=== PATIENT | female | born 1985 | race Two or more races ===

== ENCOUNTER 2017-02-21 09:07 | Day surgery (SDC) | payer OTHER ==
[2017-02-21] MEDS ORDERED: MIDAZOLAM 2 MG/2 ML VIAL IVP ONE (09:13)
--- NOTE | 2017-02-21 09:13 | PDGENHP ---
History and Physical - Chief Complaint Right Hip Pain - History of Present Illness 1. Bilateral~Femoroacetabular impingement (RAJAN) Cam type, with~resultant labral tear; RIGHT>>LEFT 2. Bilateral~Hip Dyplasia (anterior under coverage) HISTORY OF PRESENT ILLNESS: Keeshais a 31 y.o.~active female~who I have had the pleasure to consult on today. I have enjoyed meeting her. She~lives in [facility]. ~Keeshaworks as an [employer]. ~She~is ; she~has one~child. ~Keeshaenjoys riding horses and volleyball. Heidi's bilateral~hip pain (R>L)~started two years~ago, with no~recalled trauma or injury, and with no~previous complaints. Keeshadoes not have~a known history of hip dysplasia. Presentation today is of anterior, posterior bilateral~hip pain. ~The hip does~ wake her~at night and does~click and catch on her. Sitting can be a real struggle~for her. Keeshadoes~report suffering from lower back pain episodes. ~ Keeshahas~utilized medication for pain management, including NSAID. Keeshahas used medication since the pain began. Keeshaunderstands that she~has a hip and pelvis problem which should be researched and wishes to get a better understanding of her~hip status, followed by an establishment of a treatment strategy, hoping sheArmenwould be able to get back to her~well being active life. History: Past medical history: ~ None which is relevant Relevant familial history: None which is relevant Past surgical history: No. Surgery Anesthesia 1 Wrist cyst excision General Keeshadenies problematic issues with general anesthesia in the past. I have reviewed, verified and agree with the past medical, surgical, family and social history. Current Medications:Armenhas a current medication list which includes the following prescription(s): ibuprofen and levonor/eth estrad-eth estrad. ALLERGIES:~is allergic to codeine and levaquin [levofloxacin]. Objective: Physical Examination: Keeshais 5~feet 11~inches tall and weighs 145~Lbs. Keeshais AAO x3; she~is well- nourished, in NAD. Skin is warm and dry. ~Breathing is non-labored. ~CV with RRR by pulse. Abdomen is soft, NTND. Currently, she~walks with a normal~gait. Trendelenburg sign is negative~and proprioception is normal, both~sides. She~presents with mild-moderate~signs of joint laxity. Beightons Score: 4 Lower spine examination is negative~for sciatic or femoral nerve irritation with negative~SLR &~femoral stretch tests. Range of motion of the spine is normal~for flexion, extension, and rotations, with~associated pain in the right lumbar area. Strength, Sensation and pulses are normal - bilaterally Ankles and knees exams are normal~and no~mal-alignment is evident. She~has no leg length discrepancy. Thigh circumference is asymmetric~with low~muscle atrophy~on left~side. Hip ROM (degrees): FL ER At 90~hip FL IR At 90~hip FL AB AD EX IR Neutral hip ER Neutral hip R (with pain) 110 60 20 45 10 15 50 45 L 115 50 25 45 5 20 55 35 Specific hip and pelvis tests: Quadrant CANDACE Roll Add. Longus R +++ +++ Negative Negative L +++ +++ Negative + Glut. Med ITB Pos. Imp R +++ 4+/5 strength Negative 4+/5 strength Negative L Negative 5/5 strength Negative 5/5 strength Negative Squeeze test measured weak. Bony Symphysis pubis is pain free~to touch while concentric activity of the rectus abdominis, does not~produce pain at its insertion. Ilio Psos specific tests are positive for pain during cycling for the right hip~ and remarkable for painful snap~on the right. HF has pain and weakness in the right hip. Anterior/Posterior~capsule tenderness on the bilateral. Greater trochanteric burse is painful~on the right hip. Positive piriformis on the right side.~FAIR is negative, with no~local signs of neuritis related to sciatic nerve. SIJs examination is produces pain on right side~with normal~CANDACE in relation and local tenderness. Hamstrings tests are negative~functional contraction and negative~tendinopathy both hips. On a daily basis, the following percentages reflect Heidi's overall total pain: Deep hip: 60% Glut med: 20% SI: 20% Imaging: Radiology studies which I have personally reviewed, analyzed and measured are below: XR: AP of the hip and pelvis: Performed in a good~technique Coccyx to pubic symphysis distance 1.3~cm. Standing [place] Lines are preserved. Minimal~Pathological signs are seen in the Symphysis Pubis. Minimal~Pathological signs are seen at the Ischial tuberosity. ~ Specific measurements show: NSA~ LCE Sourcil~Angle Sharp's angle Lat. Cam Lat. Pincer C.Over~sign Head~Coverage % ATDmm R N 31 7 40 + - - 76 N L N 27 9 40 + - - 84 N Pos. wall sign ISS NAD ~~Dysplasia Comments R Negative Negative 22.5~mm ++ L Negative Negative 20.4~mm ++ Sclerosis Sup. Lat. OA Cysts Joint Space-WBZ Joint Space-Medial R Negative Negative Negative 5.0~mm 4.5~mm L Negative Negative Negative 5.2~mm 3.2~mm Impression and plan: Keeshais a 31 y.o.~active female~suffering from symptomatic bilateral~hip pain due to Bilateral~Femoroacetabular impingement (RAJAN) Cam type, with~resultant labral tear and Bilateral~Hip Dyplasia~causing significant disability to her~ and altering her~sport and life activities. Physical examination, imaging, and her~story correspond with the diagnosis mentioned above. I explained that hip dysplasia is a condition wherein the hip joint has excessive play~and instability due to a variety of factors, including the depth and adequacy of the socket, the orientation of the femur bone, and ligament laxity around the hip joint. Dysplasia ranges in severity from borderline to zakiya, with treatment options being specific to the specific nature of the problem. Left untreated, the instability in the hip joint can cause progressive tearing of the labrum and deterioration of the surface cartilage, ultimately resulting in progressive osteoarthritis of the hip. I explained that femoroacetabular impingement (RAJAN - Cam type) arises due to a bony or soft tissue conflict between the femur (ball) and acetabulum (socket) caused by an abnormality in the shape of the femoral head and neck. Over time, repetitive impingement can result in damage to the labrum and adjacent surface cartilage within the socket, ultimately giving rise to progressive osteoarthritis of the hip. I explained that although a labral tear can be a source of pain, it is rarely the root of the problem and typically occurs secondary to an underlying abnormality in the shape and mechanics of the hip joint. I reviewed conservative treatment options for Dysplasia and RAJAN including activity modification to avoid positions of impingement or instability, physical therapy, non-steroidal anti-inflammatory medications, and various injections (corticosteroid and PRP) aimed at reducing inflammation in the hip joint or/and preventing dynamic instability and impingement. PRP injections may promote healing and reduce symptoms in certain cases but it will not repair chronically damaged tissue. Although these measures may help to buy time~and reduce current level of symptoms, they are not a definitive solution to the problem given the underlying abnormality in the shape of the hip joint. Patients who have failed conservative management and continue to experience symptoms are candidates for definitive surgical treatment, which may consist of hip arthroscopy alone or in combination with more invasive bony realignment procedures of the hip socket and/or femur called periacetabular osteotomy (NIDIA) or derotational femoral osteotomy (DFO). Hip arthroscopy typically includes treating the labrum with either repair or reconstruction of the torn labrum; as well as addressing the underlying abnormalities by restoring the normal shape to the hip joint. If the cartilage is damaged a Microfracture surgical procedure may also be necessary to help stimulate the growth of fibrocartilage. If a patient requires a labral reconstruction or a Microfracture, the initial rehabilitation from the surgery may take longer, but the medical terminologist results are typically favorable. I reviewed the technical aspects of periacetabular osteotomy (NIDIA) including risks, benefits, and expected course of recovery. Keeshaunderstands that NIDIA is an inpatient procedure carried out through two medium sized incisions on the front and back of the hip joint. The hip socket is cut, realigned, and stabilized with 2 3 internal screws. Risks include infection, bleeding, injury to nearby nerves or vessels, stiffness, persistent pain, instability, failure of bony healing, implant related complications, and venous thromboembolic disease. Rarely, revision surgery may be required to address these problems. Risks, potential complications, side effects and recovery from surgical procedure were discussed in length. We explained how this surgery is an open procedure, and though patients tend to do well in the long-term, it involves significant pain in the first 2-4 weeks post-op and a rather lengthy rehab.~Overall recovery takes approximately 6 12~months depending on the extent of damage and degree of repair. Heidi~understands that she~will undergo hip arthroscopy 1 week prior to the NIDIA to address damage inside the hip joint. Keeshaunderstands that hip arthroscopy and NIDIA are two separate procedures that are best performed one week apart, with the arthroscopy commencing first to "tighten up" any pathology evident in the hip joint (labral repair, etc.) and the NIDIA open procedure occurring 7-10 days later to realign the acetabulum. Keeshawill review the info presented. We will refer Heidi for Physical therapy. In order to obtain more detailed information regarding the alignment, orientation, and shape of the bony hip and pelvis I will order a CT scan to be performed. The results of the CT scan, including femoral torsion and acetabular version measured values and 3D images, will aid me in deciding on the best treatment strategy and surgical pre-planning. In order to better evaluate the soft tissues and cartilage of the hip joint, I will order an MRI scan. Keeshawill contact us if she~wishes to pursue further treatment in the future. ~ Keeshais happy with this plan. I have also supplied her~with handouts, outlining the expected surgical treatment and rehab involved. I wish~Keeshaall the best, ~~ Alli Lee, PAC History Information - Allergies/Home Medication List Allergies/Adverse Reactions: levofloxacin [From Levaquin] Allergy (Severe, Verified 01/14/17 11:46) Hives codeine Allergy (Intermediate, Verified 01/14/17 11:46) Hives apricots Allergy (Severe, Uncoded 01/14/17 11:46) Swelling/neck,face,throat pineapple Allergy (Severe, Uncoded 01/14/17 11:46) Swelling/neck,face,throat Home Medications: Alesse ( Control) 1 each PO DAILY 01/20/17 [Last Taken Unknown] I have personally reviewed and updated: medical history - Social History Smoking Status: Never smoked Review of Systems Review of Systems: Physical Exam Physical Exam:
[2017-02-21] MEDS ORDERED: ceFAZolin 2 GM/SWFI 2 GM/20 ML SYR IVP ONE (09:14)
[2017-02-21] MEDS ORDERED: PREGABALIN 150 MG CAP PO ONE (09:14)
[2017-02-21] MEDS ORDERED: ACETAMINOPHEN 500 MG TAB PO ONE (09:14)
[2017-02-21] MEDS ORDERED: LIDOCAINE 1% 2 ML INJ ONE (09:32)
[2017-02-21] MEDS ORDERED: LR 1,000 ML IV ONE (09:39)
[2017-02-21] MEDS ORDERED: LIDOCAINE 1% 2 ML INJ ID PRN (09:39)
[2017-02-21] MEDS ORDERED: EPINEPHrine 30 MG/30 ML MDV (0.1 MG/0.1 ML) ONE (10:31)
[2017-02-21] MEDS ORDERED: BUPIVACAINE 0.25% 30 ML SDV ONE ×2 (10:31→12:31)
[2017-02-21] MEDS ORDERED: fentaNYL 250 MCG/5 ML INJ ONE (12:11)
[2017-02-21] MEDS ORDERED: PROPOFOL/EMULSION 500 MG/50 ML BOTTLE IV ONE ×2 (12:11)
[2017-02-21] MEDS ORDERED: MIDAZOLAM 2 MG/2 ML VIAL ONE (12:32)
[2017-02-21] MEDS ORDERED: ONDANSETRON 4 MG/2 ML VIAL IVP PRN (13:05)
[2017-02-21] MEDS ORDERED: epHEDrine SULFATE 10 MG/ML SYR IVP PRN (13:05)
[2017-02-21] MEDS ORDERED: NALOXONE HCL 0.4 MG/ML INJ IVP PRN (13:05)
[2017-02-21] MEDS ORDERED: HYDROCODONE/APAP 5/325 TAB PO PRN (13:05)
[2017-02-21] MEDS ORDERED: LR 500 ML IV PRN (13:05)
[2017-02-21] MEDS ORDERED: PROMETHAZINE HCL 25 MG/ML INJ IVP PRN (13:05)
[2017-02-21] MEDS ORDERED: PHENYLEPHRINE HCL 100 MCG/ML SYR IVP PRN (13:05)
[2017-02-21] MEDS ORDERED: ALBUTEROL 3 ML DEYVIAL IH PRN (13:05)
[2017-02-21] MEDS ORDERED: LABETALOL HCL 5 MG/ML 20 ML MDV IVP PRN (13:05)
--- NOTE | 2017-02-21 13:11 | PDANEPAE ---
ANE History of Present Illness 31 year old woman for R hip arthroscopy and labral repair. Otherwise healthy. ANE Past Medical History - Cardiovascular History Hx Hypertension: No Hx Arrhythmias: No Hx Chest Pain: No Hx Coronary Artery / Peripheral Vascular Disease: No Hx CHF / Valvular Disease: No Hx Palpitations: No - Pulmonary History Hx COPD: No Hx Asthma/Reactive Airway Disease: No Hx Recent Upper Respiratory Infection: No Hx Oxygen in Use at Home: No Hx Sleep Apnea: No Sleep Apnea Screening Result - Last Documented: Negative - Neurologic History Hx Cerebrovascular Accident: No Hx Seizures: No Hx Dementia: No - Endocrine History Hx Diabetes: No - Renal History Hx Renal Disorders: Yes Renal History Comment: right kidney missing - Liver History Hx Hepatic Disorders: No - Neurological & Psychiatric Hx Hx Neurological and Psychiatric Disorders: No - Cancer History Hx Cancer: No - Congenital Disorder History Hx Congenital Disorders: Yes 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 - GI History Hx Gastrointestinal Disorders: No - Other Health History Other Health History: none - Chronic Pain History Chronic Pain: No - Surgical History Prior Surgeries: oral implants ANE Review of Systems Review of systems is: negative Review of Systems: - Exercise capacity METS (RN): 5 METS ANE Patient History - Allergies Allergies/Adverse Reactions: levofloxacin [From Levaquin] Allergy (Severe, Verified 01/14/17 11:46) Hives codeine Allergy (Intermediate, Verified 01/14/17 11:46) Hives apricots Allergy (Severe, Uncoded 01/14/17 11:46) Swelling/neck,face,throat pineapple Allergy (Severe, Uncoded 01/14/17 11:46) Swelling/neck,face,throat - Home Medications Home Medications: Alesse ( Control) 1 each PO DAILY 01/20/17 [Last Taken 02/21/17] - NPO status NPO Since - Liquids (Date): 02/20/17 NPO Since - Liquids (Time): 19:00 NPO Since - Solids (Date): 02/20/17 NPO Since - Solids (Time): 19:00 - Smoking Hx Smoking Status: Never smoked - Family Anes Hx Family Hx Anesthesia Complications: none ANE Labs/Vital Signs - Vital Signs Blood Pressure: 113/75 Heart Rate: 82 Respiratory Rate: 16 O2 Sat (%): 97 Height: 180.34 cm Weight: 65.317 kg ANE Physical Exam - Airway Mallampati Score: Class 1 Mouth exam: normal dental/mouth exam - Pulmonary Pulmonary: no respiratory distress - Cardiovascular Cardiovascular: regular rate and rhythym - ASA Status ASA Status: I ANE Anesthesia Plan Anesthesia Plan: general endotracheal anesthesia
[2017-02-21] MEDS ORDERED: SCOPOLAMINE HYDROBROMIDE 1 MG/3 DAYS PATCH TD SCH (15:30)
--- NOTE | 2017-02-21 15:30 | POSTANESTH ---
Post Anesthetic Evaluation Cardiovascular Status: Normal, Stable Respiratory Status: Normal, Stable Level of Consciousness/Mental Status: Mildly Sleepy, Arousable Pain Control: Adequate, Prn Tx Ordered Nausea/Vomiting Control: Adequate, Prn Tx Ordered Complications Possibly Related to Anesthesia: None Noted
[2017-02-21 15:37] VITALS: TEMP 97.3
[2017-02-21] MEDS ORDERED: fentaNYL 100 MCG/2 ML INJ ONE (15:38)
[2017-02-21] MEDS ORDERED: HYDROmorphONE/DILAUDID 1 MG/ML INJ ONE (15:38)
[2017-02-21] MEDS ORDERED: SCOPOLAMINE HYDROBROMIDE 1 MG/3 DAYS PATCH TD ONE (15:38)
[2017-02-21] MEDS: fentaNYL 100 MCG/2 ML INJ IVP PRN ×3 (15:42→15:58)
[2017-02-21] MEDS: HYDROmorphONE/DILAUDID 1 MG/ML INJ IVP PRN ×3 (15:42→16:01)
[2017-02-21 16:34] VITALS: RESP 12
[2017-02-21 16:44] VITALS: PULSE 74
[2017-02-21 16:57] VITALS: O2SAT 100
[2017-02-21] MEDS ORDERED: HYDROCODONE/APAP 5/325 TAB ONE (17:12)
[2017-02-21] MEDS ORDERED: ONDANSETRON 4 MG/2 ML VIAL ONE (17:30)
[2017-02-21 18:21] VITALS: BP 115/73
[2017-02-22] MEDS ORDERED: ALESSE PO SCH (09:00)
[2017-02-24] MEDS ORDERED: PATCH REMOVAL 1 EA PATCH TD SCH (15:30)
== END 2017-02-21 19:19 | disposition home or self-care (01) ==
LOC: FSGY 09:07
PROVIDERS: ATTEND Orthopaedic Surgery Sports Medicine
PROC: 0SQ94ZZ Repair Right Hip Joint, Percutaneous Endoscopic Approach (ICD-10-PCS; principal; 2017-02-21 10:30)
DX: M25.851 Other specified joint disorders, right hip (principal); Q65.89 Other specified congenital deformities of hip
CPT/HCPCS: C1713; J0171; J0690; J1170; J2250; J2405; J2704; J3010

== ENCOUNTER 2017-02-28 07:22 | Inpatient (IN) | payer OTHER ==
--- NOTE | 2017-02-24 10:51 | PDGENHP ---
History and Physical - Chief Complaint Right Hip Pain - History of Present Illness 1. Bilateral~Femoroacetabular impingement (RAJAN) Cam type, with~resultant labral tear; RIGHT>>LEFT 2. Bilateral~Hip Dyplasia (anterior under coverage) HISTORY OF PRESENT ILLNESS: Keeshais a 31 y.o.~active female~who I have had the pleasure to consult on today. I have enjoyed meeting her. She~lives in [facility]. ~Keeshaworks as an [employer]. ~She~is ; she~has one~child. ~Keeshaenjoys riding horses and volleyball. Heidi's bilateral~hip pain (R>L)~started two years~ago, with no~recalled trauma or injury, and with no~previous complaints. Keeshadoes not have~a known history of hip dysplasia. Presentation today is of anterior, posterior bilateral~hip pain. ~The hip does~ wake her~at night and does~click and catch on her. Sitting can be a real struggle~for her. Keeshadoes~report suffering from lower back pain episodes. ~ Keeshahas~utilized medication for pain management, including NSAID. Keeshahas used medication since the pain began. Keeshaunderstands that she~has a hip and pelvis problem which should be researched and wishes to get a better understanding of her~hip status, followed by an establishment of a treatment strategy, hoping sheArmenwould be able to get back to her~well being active life. History: Past medical history: ~ None which is relevant Relevant familial history: None which is relevant Past surgical history: No. Surgery Anesthesia 1 Wrist cyst excision General Keeshadenies problematic issues with general anesthesia in the past. I have reviewed, verified and agree with the past medical, surgical, family and social history. Current Medications:Armenhas a current medication list which includes the following prescription(s): ibuprofen and levonor/eth estrad-eth estrad. ALLERGIES:~is allergic to codeine and levaquin [levofloxacin]. Objective: Physical Examination: Keeshais 5~feet 11~inches tall and weighs 145~Lbs. Keeshais AAO x3; she~is well- nourished, in NAD. Skin is warm and dry. ~Breathing is non-labored. ~CV with RRR by pulse. Abdomen is soft, NTND. Currently, she~walks with a normal~gait. Trendelenburg sign is negative~and proprioception is normal, both~sides. She~presents with mild-moderate~signs of joint laxity. Beightons Score: 4 Lower spine examination is negative~for sciatic or femoral nerve irritation with negative~SLR &~femoral stretch tests. Range of motion of the spine is normal~for flexion, extension, and rotations, with~associated pain in the right lumbar area. Strength, Sensation and pulses are normal - bilaterally Ankles and knees exams are normal~and no~mal-alignment is evident. She~has no leg length discrepancy. Thigh circumference is asymmetric~with low~muscle atrophy~on left~side. Hip ROM (degrees): FL ER At 90~hip FL IR At 90~hip FL AB AD EX IR Neutral hip ER Neutral hip R (with pain) 110 60 20 45 10 15 50 45 L 115 50 25 45 5 20 55 35 Specific hip and pelvis tests: Quadrant CANDACE Roll Add. Longus R +++ +++ Negative Negative L +++ +++ Negative + Glut. Med ITB Pos. Imp R +++ 4+/5 strength Negative 4+/5 strength Negative L Negative 5/5 strength Negative 5/5 strength Negative Squeeze test measured weak. Bony Symphysis pubis is pain free~to touch while concentric activity of the rectus abdominis, does not~produce pain at its insertion. Ilio Psos specific tests are positive for pain during cycling for the right hip~ and remarkable for painful snap~on the right. HF has pain and weakness in the right hip. Anterior/Posterior~capsule tenderness on the bilateral. Greater trochanteric burse is painful~on the right hip. Positive piriformis on the right side.~FAIR is negative, with no~local signs of neuritis related to sciatic nerve. SIJs examination is produces pain on right side~with normal~CANDACE in relation and local tenderness. Hamstrings tests are negative~functional contraction and negative~tendinopathy both hips. On a daily basis, the following percentages reflect Heidi's overall total pain: Deep hip: 60% Glut med: 20% SI: 20% Imaging: Radiology studies which I have personally reviewed, analyzed and measured are below: XR: AP of the hip and pelvis: Performed in a good~technique Coccyx to pubic symphysis distance 1.3~cm. Standing [place] Lines are preserved. Minimal~Pathological signs are seen in the Symphysis Pubis. Minimal~Pathological signs are seen at the Ischial tuberosity. ~ Specific measurements show: NSA~ LCE Sourcil~Angle Sharp's angle Lat. Cam Lat. Pincer C.Over~sign Head~Coverage % ATDmm R N 31 7 40 + - - 76 N L N 27 9 40 + - - 84 N Pos. wall sign ISS NAD ~~Dysplasia Comments R Negative Negative 22.5~mm ++ L Negative Negative 20.4~mm ++ Sclerosis Sup. Lat. OA Cysts Joint Space-WBZ Joint Space-Medial R Negative Negative Negative 5.0~mm 4.5~mm L Negative Negative Negative 5.2~mm 3.2~mm Impression and plan: Keeshais a 31 y.o.~active female~suffering from symptomatic bilateral~hip pain due to Bilateral~Femoroacetabular impingement (RAJAN) Cam type, with~resultant labral tear and Bilateral~Hip Dyplasia~causing significant disability to her~ and altering her~sport and life activities. Physical examination, imaging, and her~story correspond with the diagnosis mentioned above. I explained that hip dysplasia is a condition wherein the hip joint has excessive play~and instability due to a variety of factors, including the depth and adequacy of the socket, the orientation of the femur bone, and ligament laxity around the hip joint. Dysplasia ranges in severity from borderline to zakiya, with treatment options being specific to the specific nature of the problem. Left untreated, the instability in the hip joint can cause progressive tearing of the labrum and deterioration of the surface cartilage, ultimately resulting in progressive osteoarthritis of the hip. I explained that femoroacetabular impingement (RAJAN - Cam type) arises due to a bony or soft tissue conflict between the femur (ball) and acetabulum (socket) caused by an abnormality in the shape of the femoral head and neck. Over time, repetitive impingement can result in damage to the labrum and adjacent surface cartilage within the socket, ultimately giving rise to progressive osteoarthritis of the hip. I explained that although a labral tear can be a source of pain, it is rarely the root of the problem and typically occurs secondary to an underlying abnormality in the shape and mechanics of the hip joint. I reviewed conservative treatment options for Dysplasia and RAJAN including activity modification to avoid positions of impingement or instability, physical therapy, non-steroidal anti-inflammatory medications, and various injections (corticosteroid and PRP) aimed at reducing inflammation in the hip joint or/and preventing dynamic instability and impingement. PRP injections may promote healing and reduce symptoms in certain cases but it will not repair chronically damaged tissue. Although these measures may help to buy time~and reduce current level of symptoms, they are not a definitive solution to the problem given the underlying abnormality in the shape of the hip joint. Patients who have failed conservative management and continue to experience symptoms are candidates for definitive surgical treatment, which may consist of hip arthroscopy alone or in combination with more invasive bony realignment procedures of the hip socket and/or femur called periacetabular osteotomy (NIDIA) or derotational femoral osteotomy (DFO). Hip arthroscopy typically includes treating the labrum with either repair or reconstruction of the torn labrum; as well as addressing the underlying abnormalities by restoring the normal shape to the hip joint. If the cartilage is damaged a Microfracture surgical procedure may also be necessary to help stimulate the growth of fibrocartilage. If a patient requires a labral reconstruction or a Microfracture, the initial rehabilitation from the surgery may take longer, but the ad terminal makeup operator results are typically favorable. I reviewed the technical aspects of periacetabular osteotomy (NIDIA) including risks, benefits, and expected course of recovery. Keeshaunderstands that NIDIA is an inpatient procedure carried out through two medium sized incisions on the front and back of the hip joint. The hip socket is cut, realigned, and stabilized with 2 3 internal screws. Risks include infection, bleeding, injury to nearby nerves or vessels, stiffness, persistent pain, instability, failure of bony healing, implant related complications, and venous thromboembolic disease. Rarely, revision surgery may be required to address these problems. Risks, potential complications, side effects and recovery from surgical procedure were discussed in length. We explained how this surgery is an open procedure, and though patients tend to do well in the long-term, it involves significant pain in the first 2-4 weeks post-op and a rather lengthy rehab.~Overall recovery takes approximately 6 12~months depending on the extent of damage and degree of repair. Heidi~understands that she~will undergo hip arthroscopy 1 week prior to the NIDIA to address damage inside the hip joint. Keeshaunderstands that hip arthroscopy and NIDIA are two separate procedures that are best performed one week apart, with the arthroscopy commencing first to "tighten up" any pathology evident in the hip joint (labral repair, etc.) and the NIDIA open procedure occurring 7-10 days later to realign the acetabulum. Keeshawill review the info presented. We will refer Heidi for Physical therapy. In order to obtain more detailed information regarding the alignment, orientation, and shape of the bony hip and pelvis I will order a CT scan to be performed. The results of the CT scan, including femoral torsion and acetabular version measured values and 3D images, will aid me in deciding on the best treatment strategy and surgical pre-planning. In order to better evaluate the soft tissues and cartilage of the hip joint, I will order an MRI scan. Keeshawill contact us if she~wishes to pursue further treatment in the future. ~ Keeshais happy with this plan. I have also supplied her~with handouts, outlining the expected surgical treatment and rehab involved. I wish~Keeshaall the best, ~~ Alli Lee, [facility] TIME/COMMUNICATION: I personally spent a total of 60~minutes on this consultation. Of that 60~ minutes was counseling/coordination of Heidi's care explaining the pathology and treatment strategy over imaging and hip models.See my note above for details. History Information - Allergies/Home Medication List Allergies/Adverse Reactions: levofloxacin [From Levaquin] Allergy (Severe, Verified 01/14/17 11:46) Hives codeine Allergy (Intermediate, Verified 01/14/17 11:46) Hives apricots Allergy (Severe, Uncoded 01/14/17 11:46) Swelling/neck,face,throat pineapple Allergy (Severe, Uncoded 01/14/17 11:46) Swelling/neck,face,throat Home Medications: Alesse ( Control) 1 each PO DAILY 01/20/17 [Last Taken 02/21/17] I have personally reviewed and updated: medical history - Social History Smoking Status: Never smoked Review of Systems Review of Systems: Physical Exam Physical Exam:
[~2017-02-28 07:22] MED LIST: TRANEXAMIC ACID 1,000 MG in NS 100 ML IV ONE
[2017-02-28] MEDS ORDERED: ceFAZolin 2 GM/SWFI 2 GM/20 ML SYR IVP ONE (07:49)
[2017-02-28] MEDS ORDERED: ACETAMINOPHEN 500 MG TAB PO ONE (07:49)
[2017-02-28] MEDS ORDERED: SCOPOLAMINE HYDROBROMIDE 1 MG/3 DAYS PATCH TD ONE (07:49)
[2017-02-28] MEDS ORDERED: PREGABALIN 150 MG CAP PO ONE (07:49)
[2017-02-28] MEDS ORDERED: LR 1,000 ML IV ONE (07:50)
[2017-02-28] MEDS ORDERED: LIDOCAINE 1% 2 ML INJ ID PRN (07:50)
[2017-02-28] MEDS ORDERED: CITRATE DEXTROSE SOLN 500 ML BAG ONE (09:03)
[2017-02-28] MEDS ORDERED: MIDAZOLAM 2 MG/2 ML VIAL ONE ×2 (09:04)
[2017-02-28] MEDS ORDERED: PHENYLEPHRINE 10 MG/ML SDV ONE ×2 (09:07→10:20)
[2017-02-28] MEDS ORDERED: PROPOFOL/EMULSION 500 MG/50 ML BOTTLE IV ONE ×2 (09:10→10:59)
[2017-02-28] MEDS ORDERED: ROCURONIUM 100 MG/10 ML VIAL ONE (09:11)
[2017-02-28] MEDS ORDERED: LIDOCAINE 2% 5 ML SDV ONE ×2 (09:16)
[2017-02-28] MEDS ORDERED: PROPOFOL 200 MG/20 ML VIAL ONE ×3 (09:16→12:54)
[2017-02-28] MEDS ORDERED: LIDOCAINE HCL 160 MG/4 ML LTA KIT TP ONE (09:19)
[2017-02-28] MEDS ORDERED: ROPIVACAINE HCL 150 MG/30 ML INJ ONE (09:20)
--- NOTE | 2017-02-28 09:30 | PDANEPAE ---
ANE History of Present Illness History oif hip dysplasia in otherwise healthy 31 year old female ANE Past Medical History - Cardiovascular History Hx Hypertension: No Hx Arrhythmias: No Hx Chest Pain: No Hx Coronary Artery / Peripheral Vascular Disease: No Hx CHF / Valvular Disease: No Hx Palpitations: No - Pulmonary History Hx COPD: No Hx Asthma/Reactive Airway Disease: No Hx Recent Upper Respiratory Infection: No Hx Oxygen in Use at Home: No Hx Sleep Apnea: No Sleep Apnea Screening Result - Last Documented: Negative - Neurologic History Hx Cerebrovascular Accident: No Hx Seizures: No Hx Dementia: No - Endocrine History Hx Diabetes: No - Renal History Hx Renal Disorders: Yes Renal History Comment: right kidney missing - Liver History Hx Hepatic Disorders: No - Neurological & Psychiatric Hx Hx Neurological and Psychiatric Disorders: No - Cancer History Hx Cancer: No - Congenital Disorder History Hx Congenital Disorders: Yes 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 - GI History Hx Gastrointestinal Disorders: No - Other Health History Other Health History: none - Chronic Pain History Chronic Pain: No - Surgical History Prior Surgeries: oral implants ANE Review of Systems Review of Systems: - Exercise capacity METS (RN): 5 METS ANE Patient History - Allergies Allergies/Adverse Reactions: levofloxacin [From Levaquin] Allergy (Severe, Verified 01/14/17 11:46) Hives codeine Allergy (Intermediate, Verified 01/14/17 11:46) Hives apricots Allergy (Severe, Uncoded 01/14/17 11:46) Swelling/neck,face,throat pineapple Allergy (Severe, Uncoded 01/14/17 11:46) Swelling/neck,face,throat - Home Medications Home Medications: Alesse ( Control) 1 each PO DAILY 01/20/17 [Last Taken 02/28/17] - NPO status NPO Since - Liquids (Date): 02/27/17 NPO Since - Liquids (Time): 20:00 NPO Since - Solids (Date): 02/27/17 NPO Since - Solids (Time): 20:00 - Anes Hx Anes Hx: post operative nausea (has scopolamine patch) - Smoking Hx Smoking Status: Never smoked - Family Anes Hx Family Hx Anesthesia Complications: none ANE Labs/Vital Signs - Vital Signs Blood Pressure: 122/79 Heart Rate: 94 Respiratory Rate: 16 O2 Sat (%): 97 Height: 180.34 cm Weight: 65.31 kg ANE Physical Exam - Airway Mallampati Score: Class 1 Mouth exam: normal dental/mouth exam - ASA Status ASA Status: I ANE Anesthesia Plan Anesthesia Plan: general endotracheal anesthesia, epidural
[2017-02-28] MEDS ORDERED: DEXAMETHASONE 4 MG/ML VIAL ONE (10:31)
[2017-02-28] MEDS ORDERED: ONDANSETRON 4 MG/2 ML VIAL ONE (10:31)
[2017-02-28 10:58] LABS: % IMMATURE GRANULYOCYTES 0.3 % (0.0-1.1); ABSOLUTE IMMATURE GRANULOCYTES 0.02 10^3/uL (0.00-0.10); ADD DIFF? NO; ADD MORPH? NO; ADD SCAN? NO; ATYPICAL LYMPHOCYTE FLAG 0 (0-99); FRAGMENT RBC FLAG 0 (0-99); HEMATOCRIT 38.4 % (38.0-47.0); HEMOGLOBIN 13.4 g/dL (12.6-16.3); LEFT SHIFT FLG 0 (0-99); LIPEMIA HEMOLYSIS FLAG 90 (0-99); MEAN CELL HEMOGLOBIN 31.1 pg (27.9-34.1); MEAN CELL HEMOGLOBIN CONCENTR. 34.9 g/dL (32.4-36.7); MEAN CELL VOLUME 89.1 fL (81.5-99.8); MEAN PLATELET VOLUME 11.2 fL (8.7-11.7); PLATELET CLUMPS FLAG 0 (0-99); PLATELET COUNT 185 10^3/uL (150-400); RED BLOOD CELL COUNT 4.31 10^6/uL (4.18-5.33); RED CELL DISTRIBUTION WIDTH 11.8 % (11.5-15.2)
[2017-02-28] MEDS ORDERED: NALOXONE HCL 0.4 MG/ML INJ IVP PRN ×3 (12:40→14:57)
[2017-02-28] MEDS ORDERED: DEXAMETHASONE 4 MG/ML VIAL IVP PRN (12:42)
[2017-02-28] MEDS ORDERED: ONDANSETRON 4 MG/2 ML VIAL IVP PRN ×2 (12:42→14:57)
[2017-02-28] MEDS ORDERED: PROMETHAZINE HCL 25 MG/ML INJ IVP PRN (12:42)
[2017-02-28] MEDS ORDERED: fentaNYL 100 MCG/2 ML INJ IVP PRN (12:42)
--- NOTE | 2017-02-28 12:48 | POSTANESTH ---
Post Anesthetic Evaluation Respiratory Status: Normal, Stable Level of Consciousness/Mental Status: Can Participate in Eval Pain Control: Adequate, Prn Tx Ordered Nausea/Vomiting Control: Adequate, Prn Tx Ordered Complications Possibly Related to Anesthesia: None Noted
[2017-02-28] MEDS ORDERED: BISACODYL 10 MG SUPP PR PRN (14:45)
[2017-02-28] MEDS ORDERED: LACTULOSE 20 GM/30 ML UDCUP PO PRN (14:45)
[2017-02-28] MEDS ORDERED: fentaNYL 100 MCG/2 ML INJ ONE (14:48)
[2017-02-28] MEDS ORDERED: NARCOTIC DRIP BAG-TOTAL ALL TYPES EP PRN (14:57)
[2017-02-28] MEDS ORDERED: diphenhydrAMINE 25 MG CAP PO PRN (14:57)
[2017-02-28] MEDS ORDERED: fentaNYL 2MCG/ML/BUP 0.1% RTU 100 ML EP SCH (14:57)
[2017-02-28] MEDS: FENT2MCG/ML&BUP0.1% 1 EA, fentaNYL 200 MCG, BUPIVACAINE 0.5% 20 ML in NS 100 ML IV SCH ×2 (15:46→23:57)
[2017-02-28] MEDS: KETOROLAC 30 MG/1 ML SDV IVP SCH ×2 (18:18→23:58)
--- NOTE | 2017-02-28 22:42 | SUROPNOTE ---
KATHERINE Operative Report - [facility] Diagnosis: Right 1. Hip Acetabular Dysplasia ~ Operation: Right~Brittany Acetabular Osteotomy (NIDIA) Surgeon: Solomon Valladares MD Elephant Tamer:~~Chirag MCCRARY Anesthetic: General + epidural Procedure: General anesthetic. Antibiotics given. Cell saver in use. Fluoroscopy. Phase 1: Position lateral, diagonal skin incision between ischial tuberosity and greater trochanter as for posterior hip approach. Blunt split of glut max fibers. Identification of fat pad overlying sciatic nerve. Exposure of sciatic nerve under fat pad, gently retracting it away-medially to ischial tuberosity. Exposure of subcotoloid fossa proximal to short rotators. Using osteotomes and under fluoroscopy, osteotomy of subcotoloid fossa to sciatic notch proximal to ischial spine. Closure of lateral cut. Patient is turned supine. Phase 2: Skin incision just distal to ASIS. Using diathermy the iliac spine was exposed and inguinal ligament + Sartorious were retracted medially, taking the LFCN with them, protecting it. Inner ilium was dissected from iliacus muscle bluntly , with a cob and swab. Dissection continued towards lateral superior ramus pubis. Using fluoroscopy an osteotomy of lateral superior ramus, just medial to tear drop, was performed with curved fish mouth osteotome. Phase 3: Osteotomy lines of the ilium were marked with diathermy as pre planned according to XR/CT and expected correction of acatabulum. 2 Shanz screws were drilled into central acetabular fragment, corresponding with planned correction angles, in order to mobilize central acetabular fragment after osteotomy is complete. ~Iliac osteotomy was performed with reciprocating saw and the main acetabular fragment was moved to realign weight bearing position. After confirmation of correction using fluoroscopy in AP and false profile planes, the fragment was fixed with 1 - 4mm~~full threaded~screw~and 2 - 5.5mm ~full threaded~screws. Inguinal ligament and Sartorious were attached back to ASIS through drill holes. Incision was closed according to soft tissue layers. Skin was closed with subdermal Monocryl. Final fluoro shots were obtained to confirm position/correction. After surgery Heidi~moved both lower limbs and had no NV motor compromise. Specimen - none Complication - none Evaluation under anesthesia: IR at 90 degrees hip flexion prior to NIDIA was 20-25~degrees and after NIDIA was 15 ~degrees. Bleedin~cc into cell-saver, 300~of blood products were returned to patient. Post op instructions: 1. Non~weight bearing crutches for 4~weeks 2. Epidural analgesia for 24-48 hours 3. Continuous SCD 4. Aspirin 81 mg X1 day once Epidural is discontinued 5. Avoid hip flexion past 90 and hip External rotation. 6. PT according to my recommendations at follow up visit Kind regards, Dr. Solomon Valladares
[2017-02-28] MEDS: SENNOSIDES/DOCUSATE SODIUM TAB PO SCH (23:58)
[2017-03-01] MEDS: ONDANSETRON DISINTEGRATING 4 MG TAB PO PRN (00:08)
[2017-03-01 05:05] LABS: HEMATOCRIT 33.5 % (38.0-47.0); HEMOGLOBIN 11.7 g/dL (12.6-16.3); MEAN CELL HEMOGLOBIN 31.4 pg (27.9-34.1); MEAN CELL HEMOGLOBIN CONCENTR. 34.9 g/dL (32.4-36.7); MEAN CELL VOLUME 89.8 fL (81.5-99.8); RED BLOOD CELL COUNT 3.73 10^6/uL (4.18-5.33)
[2017-03-01] MEDS: KETOROLAC 30 MG/1 ML SDV IVP SCH ×2 (05:21→11:18)
[2017-03-01 06:11] LABS: ANION GAP 8 mEq/L (8-16); CALCIUM 8.8 mg/dL (8.5-10.4); CARBON DIOXIDE 24 mEq/l (22-31); CHLORIDE 106 mEq/L (97-110); CREATININE 1.1 mg/dL (0.6-1.0); GLOMERULAR FILTRATION RATE 58; GLUCOSE 102 mg/dL (70-100); POTASSIUM 4.5 mEq/L (3.5-5.2); SODIUM 138 mEq/L (134-144)
[2017-03-01] MEDS: FENT2MCG/ML&BUP0.1% 1 EA, fentaNYL 200 MCG, BUPIVACAINE 0.5% 20 ML in NS 100 ML IV SCH ×2 (08:11→17:09)
[2017-03-01] MEDS: SENNOSIDES/DOCUSATE SODIUM TAB PO SCH ×2 (08:26→20:56)
[2017-03-01] MEDS: DC NARCS MISC SCH (10:56)
[2017-03-01] MEDS: REGARDING ANTICOAG MISC SCH (10:57)
--- NOTE | 2017-03-01 12:11 | POSTANESTH ---
Post Anesthetic Evaluation Respiratory Status: Normal, Stable Pain Control: Adequate, Prn Tx Ordered Nausea/Vomiting Control: Adequate, Prn Tx Ordered Complications Possibly Related to Anesthesia: None Noted, Other, See Comments ( Came to see Heidi and she is doing well with good pain control. Some motor weakness lower extremities, left more than right. Plan to decrease epidural today, remove tomorrow.)
--- NOTE | 2017-03-01 13:56 | ASMTCMCOM ---
CM Note CM Note Notes: Pt had planned surgery for hip dysplasia. PT rec home w 24/hr care, OT rec home. Anticipate pt will d/c when medically stable. No CM d/c needs identified at this time. CM available for changes/needs. Date Signed: 03/01/2017 01:55 PM Electronically Signed By:VINH Haynes
[2017-03-01] MEDS: ONDANSETRON 4 MG/2 ML VIAL IVP PRN (16:25)
[2017-03-01] MEDS: PROMETHAZINE HCL 25 MG/ML INJ IVP PRN (18:14)
[2017-03-01] MEDS ORDERED: Naproxen [Naproxen] 500 MG PO PRN (20:08)
--- NOTE | 2017-03-01 20:14 | SOAPPROG ---
SOAP Progress Note Assessment/Plan: Assessment: 1 Day Post Op Right Periacetabular Osteotomy Plan: Epidural per anesthesia; wean down and discontinue tomorrow Transition to oral analgesics tomorrow Up with PT/OT Pelvis X-ray POD#3 03/01/17 20:10 Subjective: Heidi is doing well this evening. Her pain is well managed with the epidural; it was turned down from 10 to 8 today. She's had some nausea but has been eating well. She denies any cp or sob. Objective: Vital Signs Temp Pulse Resp BP Pulse Ox 37.3 C 79 16 101/52 L 96 03/01/17 15:56 03/01/17 18:00 03/01/17 18:00 03/01/17 18:00 03/01/17 18:00 Laboratory Results 03/01/17 04:29 03/01/17 04:29 02/28/17 03/01/17 03/02/17 05:59 05:59 05:59 Intake Total 2100 400 Output Total 2200 900 Balance -100 -500 Well appearing in NAD Right Hip: dressings clean, dry, intact surrounding ecchymosis and edema Full ROM of Foot and Ankle - Pending Discharge Pending Discharge Within 48 Hours: Yes Pending Discharge Date: 03/03/17 Pending Discharge Time: 11:00 ICD10 Worksheet Patient Problems: Problems Problem Status Onset Post-operative pain Acute - ICD10 Problem Qualifiers (1) Post-operative pain
[2017-03-01] MEDS: ALESSE PO SCH (20:57)
[2017-03-02] MEDS ORDERED: CALCIUM CARBONATE 500 MG CHEWABLE TAB PO ONE (02:21)
[2017-03-02] MEDS: FENT2MCG/ML&BUP0.1% 1 EA, fentaNYL 200 MCG, BUPIVACAINE 0.5% 20 ML in NS 100 ML IV SCH ×2 (02:24→11:24)
--- NOTE | 2017-03-02 07:29 | SOAPPROG ---
SOAP Progress Note Assessment/Plan: Assessment: POD#2 s/p R NIDIA and doing well Plan: 03/02/17 07:26 - continue wean off of epidural with transition to oral pain control today - encourage fluids and incentive spirometry - turn q 2-3 hrs while in bed - once epidural discontinued can remove hernandez 2 hrs after - tums and zantac for heartburn - XR of AP pelvis tomorrow - anticipating discharge on Tuesday Subjective: Complaining of heartburn this AM. Had nausea last night that was alleviated by zofran and phenergan. Having muscle spasm-like pain in groin - has not received valium for this. No CP or SOB. L leg still feels heavier and more numb than R leg from epidural. Passing gas. Objective: Vital Signs Temp Pulse Resp BP Pulse Ox 36.9 C 96 16 112/59 L 94 03/02/17 04:00 03/02/17 06:00 03/02/17 06:00 03/02/17 06:00 03/02/17 06:00 Laboratory Results 03/01/17 04:29 03/01/17 04:29 03/01/17 03/02/17 03/03/17 05:59 05:59 05:59 Intake Total 2100 800 Output Total 2200 1550 Balance -100 -750 GEN - NAD, AO ABD - soft, NT, ND BLE - - dressings c/d/i - 5/5 strength thigh adduction, flexion/extension of ankles and toes bilaterally - reduced sensation in L (nonoperative) medial thigh and in LFCN on R - BCR, WWP ICD10 Worksheet Patient Problems: Problems Problem Status Onset Post-operative pain Acute
[2017-03-02] MEDS: CALCIUM CARBONATE 500 MG CHEWABLE TAB PO PRN ×2 (08:20→23:16)
[2017-03-02] MEDS: SENNOSIDES/DOCUSATE SODIUM TAB PO SCH ×2 (08:25→19:59)
[2017-03-02] MEDS: DIAZEPAM 2 MG TAB PO PRN ×2 (08:26→16:09)
[2017-03-02] MEDS ORDERED: RANITIDINE HCL 150 MG/10 ML UDCUP PO SCH (09:00)
[2017-03-02] MEDS: FAMOTIDINE 20 MG TAB PO SCH ×2 (09:39→18:41)
[2017-03-02] MEDS: REGARDING ANTICOAG MISC SCH (10:53)
[2017-03-02] MEDS: DC NARCS MISC SCH (10:53)
[2017-03-02] MEDS: ALESSE PO SCH (10:55)
[2017-03-02] MEDS: ONDANSETRON 4 MG/2 ML VIAL IVP PRN (12:14)
[2017-03-02] MEDS ORDERED: morphINE PF 5 MG/10 ML INJ ONE (15:49)
[2017-03-02] MEDS: ASPIRIN EC 81 MG TAB PO SCH (16:09)
--- NOTE | 2017-03-02 16:13 | POSTANESTH ---
Post Anesthetic Evaluation Cardiovascular Status: Normal, Stable Respiratory Status: Normal, Stable Level of Consciousness/Mental Status: Can Participate in Eval Pain Control: Adequate, Prn Tx Ordered Nausea/Vomiting Control: Adequate, Prn Tx Ordered Complications Possibly Related to Anesthesia: None Noted (Epidural dosed with 3.5 mg of preservative free morphine prior to removal of catheter. Catheter removed; intact to tip. No signs of infection. Patient counseled as to possible side effects of epidural morphine prior to administration and agrees to proceed with the morphine as a bridge to more routine pain medication.)
[2017-03-02] MEDS ORDERED: HYDROmorphONE/DILAUDID 2 MG TAB PO PRN ×2 (16:14→16:31)
[2017-03-02] MEDS ORDERED: oxyCODONE IR 15 MG TAB PO PRN (16:14)
[2017-03-02] MEDS: PROMETHAZINE HCL 25 MG/ML INJ IVP PRN ×2 (16:20→23:11)
[2017-03-02] MEDS ORDERED: oxyCODONE IR 5 MG TAB PO PRN (16:26)
[2017-03-02] MEDS ORDERED: HYDROmorphone HCL/NS/PF 0.4 MG/2 ML SYR IVP PRN (16:29)
[2017-03-02] MEDS ORDERED: oxyCODONE IR 5 MG TAB PO SCH (18:00)
[2017-03-02] MEDS: HYDROmorphONE/DILAUDID 4 MG TAB PO SCH ×2 (19:48→23:03)
[2017-03-03] MEDS: HYDROmorphONE/DILAUDID 4 MG TAB PO SCH ×6 (02:31→22:04)
[2017-03-03] MEDS: CALCIUM CARBONATE 500 MG CHEWABLE TAB PO PRN (02:38)
[2017-03-03] MEDS: DIAZEPAM 2 MG TAB PO PRN ×2 (06:36→22:26)
[2017-03-03] MEDS: PROMETHAZINE HCL 25 MG/ML INJ IVP PRN ×2 (06:36→16:57)
[2017-03-03] MEDS: FAMOTIDINE 20 MG TAB PO SCH ×2 (08:49→22:04)
[2017-03-03] MEDS: ASPIRIN EC 81 MG TAB PO SCH (08:49)
[2017-03-03] MEDS: SENNOSIDES/DOCUSATE SODIUM TAB PO SCH ×2 (08:49→22:04)
[2017-03-03] MEDS: ALESSE PO SCH (08:49)
[2017-03-03] MEDS: ONDANSETRON 4 MG/2 ML VIAL IVP PRN (10:21)
[2017-03-03] MEDS: REGARDING ANTICOAG MISC SCH (11:05)
[2017-03-03] MEDS: DC NARCS MISC SCH (11:05)
[2017-03-03] MEDS: ONDANSETRON DISINTEGRATING 4 MG TAB PO PRN (15:01)
[2017-03-03] MEDS: MAGNESIUM HYDROXIDE 30 ML UDCUP PO PRN (16:02)
[2017-03-03] MEDS ORDERED: SCOPOLAMINE HYDROBROMIDE 1 MG/3 DAYS PATCH TD SCH (17:00)
--- NOTE | 2017-03-03 17:29 | SOAPPROG ---
SOAP Progress Note Assessment/Plan: Assessment: Plan: 03/03/17 17:28 POD3 Epidural out, pain controlled, NV intact, HH is good, PT progress well. Radiograph show good unchanged alignment. will keep on working with [place]/OT and get ready for discharge Dr Valladares Objective: Vital Signs Temp Pulse Resp BP Pulse Ox 36.9 C 82 16 115/70 95 03/03/17 11:09 03/03/17 15:45 03/03/17 15:45 03/03/17 15:45 03/03/17 15:45 Laboratory Results 03/01/17 04:29 03/01/17 04:29 03/02/17 03/03/17 03/04/17 05:59 05:59 05:59 Intake Total 800 800 300 Output Total 1550 2150 450 Balance -750 -1350 -150 ICD10 Worksheet Patient Problems: Problems Problem Status Onset Post-operative pain Acute
[2017-03-03] MEDS: ACETAMINOPHEN 325 MG TAB PO PRN (18:28)
[2017-03-03] MEDS: traMADol 50 MG TAB PO PRN (18:29)
[2017-03-04] MEDS: traMADol 50 MG TAB PO PRN ×3 (00:22→14:10)
[2017-03-04] MEDS: ACETAMINOPHEN 325 MG TAB PO PRN ×3 (00:22→14:10)
[2017-03-04] MEDS: PROMETHAZINE HCL 25 MG/ML INJ IVP PRN (01:53)
[2017-03-04] MEDS: HYDROmorphONE/DILAUDID 4 MG TAB PO SCH ×4 (01:53→14:11)
[2017-03-04] MEDS: SENNOSIDES/DOCUSATE SODIUM TAB PO SCH ×2 (09:00→21:04)
[2017-03-04] MEDS: ASPIRIN EC 81 MG TAB PO SCH (09:00)
[2017-03-04] MEDS: FAMOTIDINE 20 MG TAB PO SCH ×2 (09:00→21:04)
[2017-03-04] MEDS: NAPROXEN SODIUM 220 MG TAB PO PRN (09:00)
[2017-03-04] MEDS: POLYETHYLENE GLYCOL 3350 17 GM PKT PO PRN (10:12)
[2017-03-04] MEDS: ALESSE PO SCH (10:13)
[2017-03-04] MEDS: ONDANSETRON DISINTEGRATING 4 MG TAB PO PRN (12:40)
--- NOTE | 2017-03-04 14:34 | ASMTCMCOM ---
CM Note CM Note Notes: Anticipate pt will d/c when medically stable. Plan remains d/c independent, CM available for changes/needs. Date Signed: 03/04/2017 02:34 PM Electronically Signed By:VINH Haynes
[2017-03-04] MEDS: ONDANSETRON 4 MG/2 ML VIAL IVP PRN (14:59)
[2017-03-04] MEDS ORDERED: oxyCODONE IR 15 MG TAB PO PRN (17:43)
--- NOTE | 2017-03-04 17:50 | SOAPPROG ---
SOAP Progress Note Assessment/Plan: Assessment: 4th Day Post Op Right Periacetabular Osteotomy Dynamic Ileus Plan: Switching from Dilaudid to Oxycodone in hopes that Heidi will have less nausea PO Phenergn Up with PT/OT monitor bowel function 03/01/17 20:10 03/04/17 17:46 Subjective: Heidi is fairly well pain managed but is struggling with nausea. She has been distended but reports passing gas. She's been up with PT/OT, not ready to go home yet. She denies cp, sob. Objective: Vital Signs Temp Pulse Resp BP Pulse Ox 36.7 C 58 L 16 88/51 L 100 03/04/17 07:38 03/04/17 07:38 03/04/17 07:38 03/04/17 07:38 03/04/17 07:38 Laboratory Results 03/01/17 04:29 03/01/17 04:29 03/03/17 03/04/17 03/05/17 05:59 05:59 05:59 Intake Total 800 800 Output Total 2150 1500 Balance -1350 -700 Well appearing in NAD Right hip: dressings clean dry intact surrounding ecchymosis edema some thigh numbness NVI distally Full ROM of foot and ankle - Pending Discharge Pending Discharge Within 48 Hours: Yes Pending Discharge Date: 03/06/17 Pending Discharge Time: 11:00 ICD10 Worksheet Patient Problems: Problems Problem Status Onset Post-operative pain Acute - ICD10 Problem Qualifiers (1) Post-operative pain
[2017-03-04] MEDS: oxyCODONE IR 5 MG TAB PO SCH ×2 (18:32→22:40)
[2017-03-04] MEDS: PROMETHAZINE HCL 25 MG TAB PO PRN (21:04)
[2017-03-05] MEDS: oxyCODONE IR 5 MG TAB PO SCH ×4 (01:31→13:18)
[2017-03-05] MEDS: PROMETHAZINE HCL 25 MG TAB PO PRN ×3 (01:31→22:29)
[2017-03-05] MEDS: oxyCODONE IR 5 MG TAB PO PRN ×3 (03:54→14:56)
[2017-03-05] MEDS: POLYETHYLENE GLYCOL 3350 17 GM PKT PO PRN (08:31)
[2017-03-05] MEDS: FAMOTIDINE 20 MG TAB PO SCH ×2 (08:32→22:23)
[2017-03-05] MEDS: ASPIRIN EC 81 MG TAB PO SCH (08:32)
[2017-03-05] MEDS: SENNOSIDES/DOCUSATE SODIUM TAB PO SCH ×2 (08:32→22:59)
[2017-03-05] MEDS: MAGNESIUM HYDROXIDE 30 ML UDCUP PO PRN (10:58)
[2017-03-05] MEDS: ONDANSETRON DISINTEGRATING 4 MG TAB PO PRN (13:21)
[2017-03-05] MEDS: traMADol 50 MG TAB PO PRN (16:24)
[2017-03-05] MEDS: ALESSE PO SCH (16:24)
[2017-03-05] MEDS ORDERED: HYDROmorphONE/DILAUDID 2 MG TAB PO PRN (16:58)
--- NOTE | 2017-03-05 17:02 | SOAPPROG ---
SOAP Progress Note Assessment/Plan: Assessment: 5th Day Post Op Right Periacetabular Osteotomy Plan: switching back to Dilaudid since it doesn't seem that the Oxycodone is as effective PO Phenergn Up with PT/OT monitor bowel function DC home tomorrow 03/01/17 20:10 03/04/17 17:46 03/05/17 16:59 Subjective: Heidi is not as well pain controlled with the Oxycodone and she has had nausea today. She's been up with PT/OT. She denies any cp or sob. Objective: Vital Signs Temp Pulse Resp BP Pulse Ox 36.5 C 76 12 110/76 95 03/05/17 08:52 03/05/17 08:52 03/05/17 08:52 03/05/17 08:52 03/05/17 08:52 Laboratory Results 03/01/17 04:29 03/01/17 04:29 03/04/17 03/05/17 03/06/17 05:59 05:59 05:59 Intake Total 800 1200 Output Total 1500 Balance -700 1200 Well appearing in NAD Right Hip: dressings clean dry intact surrounding ecchymosis edema thigh numbness NVI distally Full ROM of foot and ankle - Pending Discharge Pending Discharge Within 24 Hours: Yes Pending Discharge Date: 03/06/17 Pending Discharge Time: 11:00 ICD10 Worksheet Patient Problems: Problems Problem Status Onset Post-operative pain Acute - ICD10 Problem Qualifiers (1) Post-operative pain
[2017-03-05 17:14] VITALS: RESP 16
[2017-03-05] MEDS: HYDROmorphONE/DILAUDID 2 MG TAB PO SCH ×2 (18:17→22:23)
[2017-03-05] MEDS: NAPROXEN SODIUM 220 MG TAB PO PRN (22:22)
[2017-03-06] MEDS: HYDROmorphONE/DILAUDID 2 MG TAB PO SCH ×4 (02:08→14:12)
[2017-03-06 07:38] VITALS: BP 100/63; PULSE 78; TEMP 98.5; O2SAT 93
[2017-03-06] MEDS: PROMETHAZINE HCL 25 MG TAB PO PRN ×2 (08:15→12:23)
[2017-03-06] MEDS: ONDANSETRON DISINTEGRATING 4 MG TAB PO PRN (09:47)
[2017-03-06] MEDS: FAMOTIDINE 20 MG TAB PO SCH (09:47)
[2017-03-06] MEDS: ALESSE PO SCH (09:54)
[2017-03-06] MEDS: ASPIRIN EC 81 MG TAB PO SCH ×2 (09:54→12:24)
[2017-03-06] MEDS: SENNOSIDES/DOCUSATE SODIUM TAB PO SCH (10:06)
[2017-03-06] MEDS: NAPROXEN SODIUM 220 MG TAB PO PRN (10:37)
== END 2017-03-06 14:27 | disposition home or self-care (01) | DRG 481 ==
LOC: F3N 07:22
PROVIDERS: ADMIT Orthopaedic Surgery Sports Medicine; ATTEND Orthopaedic Surgery Sports Medicine
DX: Q65.89 Other specified congenital deformities of hip (principal); Q60.0 Renal agenesis, unilateral
CPT/HCPCS: 97116-GP; 97161-GP; 97165-GO; 97530-GP; 97535-GO; C1713; J0690; J1100; J1170; J1885; J2250; J2274; J2370; J2405; J2550; J2704; J2795; J3010; J7060

== ENCOUNTER 2018-05-22 08:44 | Day surgery (SDC) | payer OTHER ==
--- NOTE | 2018-05-21 21:01 | PDGENHP ---
History and Physical - Chief Complaint LEFT HIP PAIN - History of Present Illness 1. Left~Femoroacetabular impingement (RAJAN) Cam type,~with~resultant labral tear; RIGHT>>LEFT 2. Left~Hip Dyplasia (anterior under coverage) 3. History of Right hip scope/Right NIDIA HISTORY OF PRESENT ILLNESS: Keeshais a~32 y.o.~active~female~who I have had the pleasure to consult on today.~I have enjoyed meeting her.~She~lives in [facility].~~Keeshaworks as an [employer].~~Alexus~is ;~alexus~has one~child. ~Keeshaenjoys riding horses~and~volleyball. Heidi's~Left hip pain started two years~ago, with~no~recalled trauma or injury, and with~no~previous complaints.~Keeshadoes not have~a known history of hip dysplasia. Presentation today is of~anterior, posterior~Left~hip pain. ~The hip~does~wake her~at night and~does~click and catch on~her. Sitting~can be a real struggle~ for her.~Keeshadoes~report suffering from lower back pain episodes. ~ Keeshahas~utilized medication for pain management, including NSAID.~Keeshahas used medication since the pain began. Keeshaunderstands that~alexus~has a hip and pelvis problem which should be researched and wishes to get a better understanding of~her~hip status, followed by an establishment of a treatment strategy, hoping~alexus~would be able to get back to~her~well being active life. History: Past medical history:~~ None which is relevant~ Relevant familial history:~None which is relevant~ Past surgical history:~ No. Surgery Anesthesia 1 Wrist cyst excision General~ 2. Right Hip scope 3. Right NIDIA Keeshadenies problematic issues with general anesthesia in the past. I have reviewed, verified and agree with the past medical, surgical, family and social history. Current Medications:~has a current medication list which includes the following prescription(s): ibuprofen and levonor/eth estrad-eth estrad. ALLERGIES:~is allergic to codeine and levaquin [levofloxacin]. Objective: Physical Examination: Keeshais 5~feet~11~inches tall and weighs~145~Lbs. Heidi~is AAO x3; she~is well- nourished, in NAD. Skin is warm and dry. ~Breathing is non-labored. ~CV with RRR by pulse. Abdomen is soft, NTND. Currently,~she~walks with a~normal~gait. Trendelenburg sign is~negative~and proprioception~is normal,~both~sides. She~presents~with mild-moderate~signs of joint laxity.~Beightons Score:~4 Lower spine examination is~negative~for sciatic or femoral nerve irritation with negative~SLR &~femoral stretch tests. Range of motion of the spine is normal~for flexion, extension, and rotations,~with~associated pain in the right lumbar area. Strength, Sensation and pulses are~normal -~bilaterally Ankles and knees exams are~normal~and~no~mal-alignment is evident.~ She~has~no leg length discrepancy. Thigh circumference is~asymmetric~with low~muscle atrophy~on left~side. Hip ROM (degrees): FL ER At 90~hip FL IR At 90~hip FL AB AD EX IR Neutral hip ER Neutral hip R~(with pain) 110 60 20 45 10 15 50 45 L 115 50 25 45 5 20 55 35 Specific hip and pelvis tests: Quadrant CANDACE Roll Add. Longus R +++ +++ Negative Negative L +++ +++ Negative + Glut. Med ITB Pos. Imp R +++ 4+/5 strength Negative 4+/5 strength Negative L Negative 5/5 strength Negative 5/5 strength Negative Squeeze test measured~weak. Bony Symphysis pubis is~pain free~to touch while concentric activity of the rectus abdominis, does not~produce pain at its insertion. Ilio Psos specific tests are~positive for pain during cycling for~the right hip~ and remarkable for painful snap~on the right. HF has~pain and weakness in~the right hip. Anterior/Posterior~capsule tenderness on the~bilateral. Greater trochanteric burse is~painful~on the right hip. Positive piriformis on the right side.~FAIR is~negative,~with no~local signs of neuritis related to sciatic nerve. SIJs examination is~produces pain on~right side~with~normal~CANDACE in relation and local tenderness. Hamstrings tests are~negative~functional contraction and negative~tendinopathy both hips. On a daily basis, the following percentages reflectNayana's overall total pain: Deep hip:~60% Glut med:~20% SI: 20% Imaging: Radiology studies which I~have personally reviewed, analyzed and measured are below: XR: AP of the hip and pelvis: Performed in a~good~technique Coccyx to pubic symphysis distance~1.3~cm. Standing [place]~Lines are preserved. Minimal~Pathological signs are seen in the Symphysis Pubis.~ Minimal~Pathological signs are seen at the Ischial~tuberosity. ~ Specific measurements show: NSA~ LCE Sourcil~Angle Sharp's angle Lat. Cam Lat. Pincer C.Over~sign Head~Coverage % ATDmm R N 31 7 40 + - - 76 N L N 27 9 40 + - - 84 N Pos. wall sign ISS NAD ~~Dysplasia Comments R Negative Negative 22.5~mm ++ L Negative Negative 20.4~mm ++ Sclerosis Sup. Lat. OA Cysts Joint Space-WBZ Joint Space-Medial R Negative Negative Negative 5.0~mm 4.5~mm L Negative Negative Negative 5.2~mm 3.2~mm Impression and plan:Armen Thaois a~32 y.o.~active female~suffering from symptomatic~Left~hip pain due to Femoroacetabular impingement (RAJAN) Cam type,~with~resultant labral tear and~ Left~Hip Dyplasia~causing significant disability to~her~and altering~her~sport and life activities. Physical examination, imaging, and~her~story correspond with the diagnosis mentioned above. I explained that hip dysplasia is a condition wherein the hip joint has excessive play~and instability due to a variety of factors, including the depth and adequacy of the socket, the orientation of the femur bone, and ligament laxity around the hip joint. Dysplasia ranges in severity from borderline to zakiya, with treatment options being specific to the specific nature of the problem. Left untreated, the instability in the hip joint can cause progressive tearing of the labrum and deterioration of the surface cartilage, ultimately resulting in progressive osteoarthritis of the hip. I explained that femoroacetabular impingement (RAJAN - Cam type) arises due to a bony or soft tissue conflict between the femur (ball) and acetabulum (socket) caused by an abnormality in the shape of the femoral head and neck. Over time, repetitive impingement can result in damage to the labrum and adjacent surface cartilage within the socket, ultimately giving rise to progressive osteoarthritis of the hip. I explained that although a labral tear can be a source of pain, it is rarely the root of the problem and typically occurs secondary to an underlying abnormality in the shape and mechanics of the hip joint. I reviewed conservative treatment options for Dysplasia and RAJAN including activity modification to avoid positions of impingement or instability, physical therapy, non-steroidal anti-inflammatory medications, and various injections (corticosteroid and PRP) aimed at reducing inflammation in the hip joint or/and preventing dynamic instability and impingement. PRP injections may promote healing and reduce symptoms in certain cases but it will not repair chronically damaged tissue. Although these measures may help to buy time~and reduce current level of symptoms, they are not a definitive solution to the problem given the underlying abnormality in the shape of the hip joint. Patients who have failed conservative management and continue to experience symptoms are candidates for definitive surgical treatment, which may consist of hip arthroscopy alone or in combination with more invasive bony realignment procedures of the hip socket and/or femur called periacetabular osteotomy (NIDIA) or derotational femoral osteotomy (DFO). Hip arthroscopy typically includes treating the labrum with either repair or reconstruction of the torn labrum; as well as addressing the underlying abnormalities by restoring the normal shape to the hip joint. If the cartilage is damaged a Microfracture surgical procedure may also be necessary to help stimulate the growth of fibrocartilage. If a patient requires a labral reconstruction or a Microfracture, the initial rehabilitation from the surgery may take longer, but the group home results are typically favorable. I reviewed the technical aspects of periacetabular osteotomy (NIDIA) including risks, benefits, and expected course of recovery.~Heidi~understands that NIDIA is an inpatient procedure carried out through two medium sized incisions on the front and back of the hip joint. The hip socket is cut, realigned, and stabilized with 2 3 internal screws. Risks include infection, bleeding, injury to nearby nerves or vessels, stiffness, persistent pain, instability, failure of bony healing, implant related complications, and venous thromboembolic disease. Rarely, revision surgery may be required to address these problems. Risks, potential complications, side effects and recovery from surgical procedure were discussed in length. We explained how this surgery is an open procedure, and though patients tend to do well in the long-term, it involves significant pain in the first 2-4 weeks post-op and a rather lengthy rehab.~Overall recovery takes approximately 6 12~months depending on the extent of damage and degree of repair. Keeshaunderstands that she~will undergo hip arthroscopy 1 week prior to the NIDIA to address damage inside the hip joint. Keeshaunderstands that hip arthroscopy and NIDIA are two separate procedures that are best performed one week apart, with the arthroscopy commencing first to "tighten up" any pathology evident in the hip joint (labral repair, etc.) and the NIDIA open procedure occurring 7-10 days later to realign the acetabulum. Keeshawill review the info presented. We will refer Heidi for Physical therapy. In order to obtain more detailed information regarding the alignment, orientation, and shape of the bony hip and pelvis I will order a CT scan to be performed. The results of the CT scan, including femoral torsion and acetabular version measured values and 3D images, will aid me in deciding on the best treatment strategy and surgical pre-planning. In order to better evaluate the soft tissues and cartilage of the hip joint, I will order an MRI scan. Keehsawill contact us if she~wishes to pursue further treatment in the future. ~ Keeshais happy with this plan. I have also supplied~her~with handouts, outlining the expected surgical treatment and rehab involved. I wish~Keeshaall the best, ~~ Alli Lee, PAC History Information - Allergies/Home Medication List Allergies/Adverse Reactions: levofloxacin [From Levaquin] Allergy (Severe, Verified 01/14/17 11:46) Hives codeine Allergy (Intermediate, Verified 01/14/17 11:46) Hives apricots Allergy (Severe, Uncoded 01/14/17 11:46) Swelling/neck,face,throat pineapple Allergy (Severe, Uncoded 01/14/17 11:46) Swelling/neck,face,throat Home Medications: Alesse ( Control) 1 each PO DAILY 01/20/17 [Last Taken 02/28/17] I have personally reviewed and updated: medical history - Social History Smoking Status: Never smoked Review of Systems Review of Systems: Physical Exam Physical Exam:
[2018-05-22] MEDS ORDERED: PREGABALIN 150 MG CAP PO ONE (09:00)
[2018-05-22] MEDS ORDERED: ACETAMINOPHEN 500 MG TAB PO ONE (09:00)
[2018-05-22] MEDS ORDERED: ceFAZolin 2 GM/DEXTROSE 100 ML IV ONE (09:00)
[2018-05-22] MEDS ORDERED: LR 1,000 ML IV ONE (09:03)
[2018-05-22] MEDS ORDERED: MIDAZOLAM 2 MG/2 ML VIAL IVP ONE (10:10)
--- NOTE | 2018-05-22 10:10 | PDANEPAE ---
ANE History of Present Illness left hip pain ANE Past Medical History - Cardiovascular History Hx Hypertension: No Hx Arrhythmias: No Hx Chest Pain: No Hx Coronary Artery / Peripheral Vascular Disease: No Hx CHF / Valvular Disease: No Hx Palpitations: No - Pulmonary History Hx COPD: No Hx Asthma/Reactive Airway Disease: No Hx Recent Upper Respiratory Infection: No Hx Oxygen in Use at Home: No Hx Sleep Apnea: No Sleep Apnea Screening Result - Last Documented: Negative - Neurologic History Hx Cerebrovascular Accident: No Hx Seizures: No Hx Dementia: No - Endocrine History Hx Diabetes: No Hypothyroid: No Hyperthyroid: No Obesity: no - Renal History Hx Renal Disorders: Yes Renal History Comment: right kidney missing - Liver History Hx Hepatic Disorders: No - Neurological & Psychiatric Hx Hx Neurological and Psychiatric Disorders: No - Cancer History Hx Cancer: No - Congenital Disorder History Hx Congenital Disorders: Yes 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 EYE LASIK. oral implants ANE Review of Systems Review of systems is: negative Review of Systems: - Exercise capacity Exercise capacity: >=4 METS METS (RN): 5 METS ANE Patient History - Allergies Allergies/Adverse Reactions: levofloxacin [From Levaquin] Allergy (Severe, Verified 01/14/17 11:46) Hives codeine Allergy (Intermediate, Verified 01/14/17 11:46) Hives apricots Allergy (Severe, Uncoded 01/14/17 11:46) Swelling/neck,face,throat pineapple Allergy (Severe, Uncoded 01/14/17 11:46) Swelling/neck,face,throat - Home Medications Home medications: home medication list seen and reviewed Home Medications: Alesse ( Control) 1 each PO DAILY 01/20/17 [Last Taken 02/28/17] - NPO status NPO Status: no food or drink >8 hours NPO Since - Liquids (Date): 05/21/18 NPO Since - Liquids (Time): 21:00 NPO Since - Solids (Date): 05/21/18 NPO Since - Solids (Time): 19:00 - Anes Hx Anes Hx: post operative nausea and vomiting - Smoking Hx Smoking Status: Never smoked - Family Anes Hx Family Hx Anesthesia Complications: none ANE Labs/Vital Signs - Vital Signs Vital Signs: reviewed preoperatively; see RN documention for details Blood Pressure: 117/76 Heart Rate: 63 Respiratory Rate: 16 O2 Sat (%): 99 Height: 180.34 cm Weight: 70.307 kg ANE Physical Exam - Airway Neck exam: FROM Mallampati Score: Class 2 Mouth exam: normal dental/mouth exam - Pulmonary Pulmonary: no respiratory distress - Cardiovascular Cardiovascular: regular rate and rhythym - ASA Status ASA Status: I ANE Anesthesia Plan Anesthesia Plan: general endotracheal anesthesia
[2018-05-22] MEDS ORDERED: SCOPOLAMINE HYDROBROMIDE 1 MG/3 DAYS PATCH TD ONE (10:22)
[2018-05-22] MEDS ORDERED: BUPIVACAINE/EPI 0.25% 10 ML SDV ONE (10:29)
[2018-05-22] MEDS ORDERED: PROPOFOL/EMULSION 500 MG/50 ML BOTTLE IV ONE ×5 (10:30→13:44)
[2018-05-22] MEDS ORDERED: EPINEPHrine 30 MG/30 ML MDV (0.1 MG/0.1 ML) ONE (10:30)
[2018-05-22] MEDS ORDERED: PROPOFOL 200 MG/20 ML VIAL ONE (10:30)
[2018-05-22] MEDS ORDERED: ONDANSETRON 4 MG/2 ML VIAL ONE (10:38)
[2018-05-22] MEDS ORDERED: LIDOCAINE 2% 5 ML SDV ONE (10:38)
[2018-05-22] MEDS ORDERED: DEXAMETHASONE 4 MG/ML VIAL ONE (10:38)
[2018-05-22] MEDS ORDERED: ROCURONIUM 50 MG/5 ML VIAL ONE (10:38)
[2018-05-22] MEDS ORDERED: fentaNYL 100 MCG/2 ML INJ ONE ×2 (11:03→15:10)
[2018-05-22] MEDS ORDERED: ALBUTEROL 3 ML DEYVIAL IH PRN (12:19)
[2018-05-22] MEDS ORDERED: PHENYLEPHRINE HCL 100 MCG/ML SYR IVP PRN (12:19)
[2018-05-22] MEDS ORDERED: NALOXONE HCL 0.4 MG/ML INJ IVP PRN (12:19)
[2018-05-22] MEDS ORDERED: MEPERIDINE 25 MG/0.5 ML AMP IVP PRN (12:19)
[2018-05-22] MEDS ORDERED: METOCLOPRAMIDE 10 MG/2 ML VIAL IVP PRN (12:19)
[2018-05-22] MEDS ORDERED: DEXAMETHASONE 4 MG/ML VIAL IVP PRN (12:19)
[2018-05-22] MEDS ORDERED: LABETALOL HCL 5 MG/ML 20 ML MDV IVP PRN (12:19)
[2018-05-22] MEDS ORDERED: PROMETHAZINE HCL 25 MG/ML INJ IVP PRN (12:19)
[2018-05-22] MEDS ORDERED: LR 500 ML IV PRN (12:19)
[2018-05-22] MEDS ORDERED: DIAZEPAM 5 MG/ML 1 ML SYR IVP PRN (12:19)
[2018-05-22] MEDS ORDERED: HYDROmorphONE/DILAUDID 2 MG/ML INJ IVP PRN (12:19)
[2018-05-22] MEDS ORDERED: ACETAMINOPHEN 500 MG TAB PO PRN (12:19)
[2018-05-22] MEDS ORDERED: oxyCODONE IR 5 MG TAB PO PRN (12:19)
[2018-05-22] MEDS ORDERED: ONDANSETRON 4 MG/2 ML VIAL IVP PRN (12:19)
--- NOTE | 2018-05-22 14:58 | POSTANESTH ---
Post Anesthetic Evaluation Cardiovascular Status: Normal, Stable Respiratory Status: Normal, Stable Level of Consciousness/Mental Status: Can Participate in Eval Pain Control: Adequate, Prn Tx Ordered Nausea/Vomiting Control: Adequate, Prn Tx Ordered Complications Possibly Related to Anesthesia: None Noted
[2018-05-22] MEDS: fentaNYL 100 MCG/2 ML INJ IVP PRN ×2 (15:13→15:39)
--- NOTE | 2018-05-22 16:17 | POSTOPPROG ---
Post Op Note Date of Operation: 05/22/18 Surgeon: Solomon Valladares Launderette Attendant: Dr Vu Anesthesia: GET(General Endotracheal) Pre-op Diagnosis: LEFT RAJAN Post-op Diagnosis: LEFT RAJAN Procedure: Left Hip Arthroscopy Inf/Abcess present in the surg proc area at time of surgery?: No
[2018-05-22] MEDS ORDERED: oxyCODONE IR 5 MG TAB ONE (16:20)
[2018-05-22 17:57] VITALS: BP 115/100
[2018-05-23] MEDS ORDERED: PATCH REMOVAL 1 EA PATCH TD ONE (10:22)
== END 2018-05-22 17:50 | disposition home or self-care (01) ==
LOC: FSGY 08:44
PROVIDERS: ATTEND Orthopaedic Surgery Sports Medicine
PROC: 0SQB4ZZ Repair Left Hip Joint, Percutaneous Endoscopic Approach (ICD-10-PCS; principal; 2018-05-22 11:00)
DX: M25.852 Other specified joint disorders, left hip (principal); M24.152 Other articular cartilage disorders, left hip; Q60.0 Renal agenesis, unilateral
CPT/HCPCS: C1713; J0171; J0690; J1100; J2250; J2405; J2704; J3010

== ENCOUNTER 2018-05-29 05:47 | Inpatient (IN) | payer OTHER ==
--- NOTE | 2018-05-28 20:40 | PDGENHP ---
History and Physical - Chief Complaint LEFT HIP PAIN - History of Present Illness 1. Left Hip Dyplasia (anterior under coverage) 2. 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 ~Keeshaenjoys riding horses~and~volleyball. Heidi's~Left~hip pain ~started two years~ago, with~no~recalled trauma or injury , and with~no~previous complaints.~Keeshadoes not have~a known history of hip dysplasia. Presentation today is of~anterior, posterior~Left~hip pain. ~The hip~does~wake her~at night and~does~click and catch on~her. Sitting~can be a real struggle~ for her.~Keeshadoes~report suffering from lower back pain episodes. ~ Keeshahas~utilized medication for pain management, including NSAID.~Keeshahas used medication since the pain began. Keeshaunderstands that~cece~has a hip and pelvis problem which should be researched and wishes to get a better understanding of~her~hip status, followed by an establishment of a treatment strategy, hoping~cece~would be able to get back to~her~well being active life. History: Past medical history:~~ None which is relevant~ Relevant familial history:~None which is relevant~ Past surgical history:~ No. Surgery Anesthesia 1 Wrist cyst excision General~ 2. Right Hip arthroscopy 3. Right NIDIA Keeshadenies problematic issues with general anesthesia in the past. I have reviewed, verified and agree with the past medical, surgical, family and social history. Current Medications:~has a current medication list which includes the following prescription(s): ibuprofen and levonor/eth estrad-eth estrad. ALLERGIES:~is allergic to codeine and levaquin [levofloxacin]. Objective: Physical Examination: Keeshais 5~feet~11~inches tall and weighs~145~Lbs. Keeshais AAO x3; she~is well- nourished, in NAD. Skin is warm and dry. ~Breathing is non-labored. ~CV with RRR by pulse. Abdomen is soft, NTND. Currently,~she~walks with a~normal~gait. Trendelenburg sign is~negative~and proprioception~is normal,~both~sides. She~presents~with mild-moderate~signs of joint laxity.~Beightons Score:~4 Lower spine examination is~negative~for sciatic or femoral nerve irritation with negative~SLR &~femoral stretch tests. Range of motion of the spine is normal~for flexion, extension, and rotations,~with~associated pain in the right lumbar area. Strength, Sensation and pulses are~normal -~bilaterally Ankles and knees exams are~normal~and~no~mal-alignment is evident.~ She~has~no leg length discrepancy. Thigh circumference is~asymmetric~with low~muscle atrophy~on left~side. Hip ROM (degrees): FL ER At 90~hip FL IR At 90~hip FL AB AD EX IR Neutral hip ER Neutral hip R~(with pain) 110 60 20 45 10 15 50 45 L 115 50 25 45 5 20 55 35 Specific hip and pelvis tests: Quadrant CANDACE Roll Add. Longus R +++ +++ Negative Negative L +++ +++ Negative + Glut. Med ITB Pos. Imp R +++ 4+/5 strength Negative 4+/5 strength Negative L Negative 5/5 strength Negative 5/5 strength Negative Squeeze test measured~weak. Bony Symphysis pubis is~pain free~to touch while concentric activity of the rectus abdominis, does not~produce pain at its insertion. Ilio Psos specific tests are~positive for pain during cycling for~the right hip~ and remarkable for painful snap~on the right. HF has~pain and weakness in~the right hip. Anterior/Posterior~capsule tenderness on the~bilateral. Greater trochanteric burse is~painful~on the right hip. Positive piriformis on the right side.~FAIR is~negative,~with no~local signs of neuritis related to sciatic nerve. SIJs examination is~produces pain on~right side~with~normal~CANDACE in relation and local tenderness. Hamstrings tests are~negative~functional contraction and negative~tendinopathy both hips. On a daily basis, the following percentages reflectNayana's overall total pain: Deep hip:~60% Glut med:~20% SI: 20% Imaging: Radiology studies which I~have personally reviewed, analyzed and measured are below: XR: AP of the hip and pelvis: Performed in a~good~technique Coccyx to pubic symphysis distance~1.3~cm. Standing [place]~Lines are preserved. Minimal~Pathological signs are seen in the Symphysis Pubis.~ Minimal~Pathological signs are seen at the Ischial~tuberosity. ~ Specific measurements show: NSA~ LCE Sourcil~Angle Sharp's angle Lat. Cam Lat. Pincer C.Over~sign Head~Coverage % ATDmm R N 31 7 40 + - - 76 N L N 27 9 40 + - - 84 N Pos. wall sign ISS NAD ~~Dysplasia Comments R Negative Negative 22.5~mm ++ L Negative Negative 20.4~mm ++ Sclerosis Sup. Lat. OA Cysts Joint Space-WBZ Joint Space-Medial R Negative Negative Negative 5.0~mm 4.5~mm L Negative Negative Negative 5.2~mm 3.2~mm Impression and plan:Armen Thaois a~32 y.o.~active female~suffering from symptomatic~bilateral~hip pain due to Bilateral~Femoroacetabular impingement (RAJAN) Cam type,~with~resultant labral tear and~Bilateral~Hip Dyplasia~causing significant disability to~her~ and altering~her~sport and life activities. Physical examination, imaging, and~her~story correspond with the diagnosis mentioned above. I explained that hip dysplasia is a condition wherein the hip joint has excessive play~and instability due to a variety of factors, including the depth and adequacy of the socket, the orientation of the femur bone, and ligament laxity around the hip joint. Dysplasia ranges in severity from borderline to zakiya, with treatment options being specific to the specific nature of the problem. Left untreated, the instability in the hip joint can cause progressive tearing of the labrum and deterioration of the surface cartilage, ultimately resulting in progressive osteoarthritis of the hip. I explained that femoroacetabular impingement (RAJAN - Cam type) arises due to a bony or soft tissue conflict between the femur (ball) and acetabulum (socket) caused by an abnormality in the shape of the femoral head and neck. Over time, repetitive impingement can result in damage to the labrum and adjacent surface cartilage within the socket, ultimately giving rise to progressive osteoarthritis of the hip. I explained that although a labral tear can be a source of pain, it is rarely the root of the problem and typically occurs secondary to an underlying abnormality in the shape and mechanics of the hip joint. I reviewed conservative treatment options for Dysplasia and RAJAN including activity modification to avoid positions of impingement or instability, physical therapy, non-steroidal anti-inflammatory medications, and various injections (corticosteroid and PRP) aimed at reducing inflammation in the hip joint or/and preventing dynamic instability and impingement. PRP injections may promote healing and reduce symptoms in certain cases but it will not repair chronically damaged tissue. Although these measures may help to buy time~and reduce current level of symptoms, they are not a definitive solution to the problem given the underlying abnormality in the shape of the hip joint. Patients who have failed conservative management and continue to experience symptoms are candidates for definitive surgical treatment, which may consist of hip arthroscopy alone or in combination with more invasive bony realignment procedures of the hip socket and/or femur called periacetabular osteotomy (NIDIA) or derotational femoral osteotomy (DFO). Hip arthroscopy typically includes treating the labrum with either repair or reconstruction of the torn labrum; as well as addressing the underlying abnormalities by restoring the normal shape to the hip joint. If the cartilage is damaged a Microfracture surgical procedure may also be necessary to help stimulate the growth of fibrocartilage. If a patient requires a labral reconstruction or a Microfracture, the initial rehabilitation from the surgery may take longer, but the paint and table edger results are typically favorable. I reviewed the technical aspects of periacetabular osteotomy (NIDIA) including risks, benefits, and expected course of recovery.~Heidi~understands that NIDIA is an inpatient procedure carried out through two medium sized incisions on the front and back of the hip joint. The hip socket is cut, realigned, and stabilized with 2 3 internal screws. Risks include infection, bleeding, injury to nearby nerves or vessels, stiffness, persistent pain, instability, failure of bony healing, implant related complications, and venous thromboembolic disease. Rarely, revision surgery may be required to address these problems. Risks, potential complications, side effects and recovery from surgical procedure were discussed in length. We explained how this surgery is an open procedure, and though patients tend to do well in the long-term, it involves significant pain in the first 2-4 weeks post-op and a rather lengthy rehab.~Overall recovery takes approximately 6 12~months depending on the extent of damage and degree of repair. Keeshaunderstands that she~will undergo hip arthroscopy 1 week prior to the NIDIA to address damage inside the hip joint. Keeshaunderstands that hip arthroscopy and NIDIA are two separate procedures that are best performed one week apart, with the arthroscopy commencing first to "tighten up" any pathology evident in the hip joint (labral repair, etc.) and the NIDIA open procedure occurring 7-10 days later to realign the acetabulum. Keeshawill review the info presented. We will refer Heidi for Physical therapy. In order to obtain more detailed information regarding the alignment, orientation, and shape of the bony hip and pelvis I will order a CT scan to be performed. The results of the CT scan, including femoral torsion and acetabular version measured values and 3D images, will aid me in deciding on the best treatment strategy and surgical pre-planning. In order to better evaluate the soft tissues and cartilage of the hip joint, I will order an MRI scan. Keeshawill contact us if she~wishes to pursue further treatment in the future. ~ Keeshais happy with this plan. I have also supplied~her~with handouts, outlining the expected surgical treatment and rehab involved. I wish~Keeshaall the best, ~~ Alli Lee, PAC History Information - Allergies/Home Medication List Allergies/Adverse Reactions: levofloxacin [From Levaquin] Allergy (Severe, Verified 01/14/17 11:46) Hives codeine Allergy (Intermediate, Verified 01/14/17 11:46) Hives apricots Allergy (Severe, Uncoded 01/14/17 11:46) Swelling/neck,face,throat pineapple Allergy (Severe, Uncoded 01/14/17 11:46) Swelling/neck,face,throat Home Medications: Alesse ( Control) 1 each PO DAILY 01/20/17 [Last Taken 02/28/17] Naproxen 05/24/18 [Last Taken Unknown] I have personally reviewed and updated: medical history - Social History Smoking Status: Never smoked Review of Systems Review of Systems: Physical Exam Physical Exam:
[2018-05-29] MEDS ORDERED: SCOPOLAMINE HYDROBROMIDE 1 MG/3 DAYS PATCH TD ONE (06:08)
[2018-05-29] MEDS ORDERED: ACETAMINOPHEN 500 MG TAB PO ONE (06:08)
[2018-05-29] MEDS ORDERED: ceFAZolin 2 GM/DEXTROSE 100 ML IV ONE (06:08)
[2018-05-29] MEDS ORDERED: TRANEXAMIC ACID 1,000 MG in NS 100 ML IV ONE (06:08)
[2018-05-29] MEDS ORDERED: PREGABALIN 150 MG CAP PO ONE (06:08)
[2018-05-29] MEDS ORDERED: LR 1,000 ML IV ONE (06:09)
[2018-05-29] MEDS ORDERED: LIDOCAINE 1% 2 ML INJ ID PRN (06:09)
[2018-05-29] MEDS ORDERED: CITRATE DEXTROSE SOLN 500 ML BAG ONE (06:54)
[2018-05-29] MEDS ORDERED: MIDAZOLAM 2 MG/2 ML VIAL IVP ONE (07:06)
[2018-05-29] MEDS ORDERED: MIDAZOLAM 2 MG/2 ML VIAL ONE ×2 (07:07→10:17)
--- NOTE | 2018-05-29 07:09 | PDANEPAE ---
ANE History of Present Illness Left periacetabular osteotomy ANE Past Medical History - Cardiovascular History Hx Hypertension: No Hx Arrhythmias: No Hx Chest Pain: No Hx Coronary Artery / Peripheral Vascular Disease: No Hx CHF / Valvular Disease: No Hx Palpitations: No - Pulmonary History Hx COPD: No Hx Asthma/Reactive Airway Disease: No Hx Recent Upper Respiratory Infection: No Hx Oxygen in Use at Home: No Hx Sleep Apnea: No Sleep Apnea Screening Result - Last Documented: Negative - Neurologic History Hx Cerebrovascular Accident: No Hx Seizures: No Hx Dementia: No - Endocrine History Hx Diabetes: No Hypothyroid: No Hyperthyroid: No Obesity: no - Renal History Hx Renal Disorders: Yes Renal History Comment: right kidney missing - Liver History Hx Hepatic Disorders: No - Neurological & Psychiatric Hx Hx Neurological and Psychiatric Disorders: No - Cancer History Hx Cancer: No - Congenital Disorder History Hx Congenital Disorders: Yes 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 ARTHROSCOPY FEMORAL PLASTY. LABRAL REPAIR ANE Review of Systems Review of systems is: negative Review of Systems: - Exercise capacity METS (RN): 5 METS ANE Patient History - Allergies Allergies/Adverse Reactions: levofloxacin [From Levaquin] Allergy (Severe, Verified 01/14/17 11:46) Hives codeine Allergy (Intermediate, Verified 01/14/17 11:46) Hives apricots Allergy (Severe, Uncoded 01/14/17 11:46) Swelling/neck,face,throat pineapple Allergy (Severe, Uncoded 01/14/17 11:46) Swelling/neck,face,throat - Home Medications Home medications: home medication list seen and reviewed Home Medications: Alesse ( Control) 1 each PO DAILY 01/20/17 [Last Taken 02/28/17] Naproxen Sodium [Naproxen Sodium ER] 500 mg PO BID 05/24/18 [Last Taken Unknown] Diazepam [Valium 2 MG (*)] 2 mg PO Q4-6PRN PRN 05/29/18 [Last Taken Unknown] Ondansetron Odt [Zofran Odt 4 mg (*)] 4 mg PO Q6HRS PRN 05/29/18 [Last Taken Unknown] oxyCODONE/APAP 5/325 [Percocet 5/325 (*)] 1 - 2 tab PO Q4-6PRN PRN 05/29/18 [ Last Taken Unknown] - NPO status NPO Status: no food or drink >8 hours NPO Since - Liquids (Date): 05/28/18 NPO Since - Liquids (Time): 19:00 NPO Since - Solids (Date): 05/28/18 NPO Since - Solids (Time): 19:00 - Anes Hx Anes Hx: post operative nausea - Smoking Hx Smoking Status: Never smoked Marijuana use: No - Alcohol Use Alcohol Use: None - Family Anes Hx Family Anes Hx: none Family Hx Anesthesia Complications: none ANE Labs/Vital Signs - Labs Result Diagrams: 05/29/18 06:35 - Vital Signs Height: 180.34 cm Weight: 65.771 kg ANE Physical Exam - Airway Neck exam: FROM Mallampati Score: Class 1 Mouth exam: normal dental/mouth exam - Pulmonary Pulmonary: no respiratory distress, no rales or rhonchi - Cardiovascular Cardiovascular: regular rate and rhythym, no murmur, rub, or gallop - ASA Status ASA Status: I ANE Anesthesia Plan Anesthesia Plan: general endotracheal anesthesia, spinal Total IV Anesthesia: Yes
[2018-05-29] MEDS ORDERED: clonIDINE 1 MG/10 ML VIAL EP ONE (07:10)
[2018-05-29] MEDS ORDERED: BUPIVACAINE 0.25% 30 ML SDV ONE (07:15)
[2018-05-29] MEDS ORDERED: fentaNYL 250 MCG/5 ML INJ ONE ×2 (07:16→08:52)
[2018-05-29] MEDS ORDERED: PROPOFOL/EMULSION 500 MG/50 ML BOTTLE IV ONE ×4 (07:17→10:22)
[2018-05-29] MEDS ORDERED: morphINE PF 5 MG/10 ML INJ ONE (07:23)
[2018-05-29] MEDS ORDERED: GLYCOPYRROLATE 0.2 MG/1 ML VIAL ONE ×3 (08:32→12:18)
[2018-05-29] MEDS ORDERED: DEXAMETHASONE 4 MG/ML VIAL ONE (08:32)
[2018-05-29] MEDS ORDERED: ROCURONIUM 100 MG/10 ML VIAL ONE ×2 (08:33→11:19)
[2018-05-29] MEDS ORDERED: PHENYLEPHRINE HCL 100 MCG/ML SYR ONE (09:22)
[2018-05-29] MEDS ORDERED: ONDANSETRON 4 MG/2 ML VIAL ONE (11:19)
[2018-05-29] MEDS ORDERED: HYDROCODONE/APAP 5/325 TAB PO PRN (11:42)
[2018-05-29] MEDS ORDERED: ONDANSETRON 4 MG/2 ML VIAL IVP PRN ×3 (11:42→13:03)
[2018-05-29] MEDS ORDERED: oxyCODONE IR 5 MG TAB PO PRN (11:42)
[2018-05-29] MEDS ORDERED: HYDROmorphONE/DILAUDID 2 MG/ML INJ IVP PRN (11:42)
[2018-05-29] MEDS ORDERED: DIAZEPAM 5 MG/ML 1 ML SYR IVP PRN (11:42)
[2018-05-29] MEDS ORDERED: fentaNYL 100 MCG/2 ML INJ IVP PRN (11:42)
[2018-05-29] MEDS ORDERED: LABETALOL HCL 5 MG/ML 20 ML MDV IVP PRN (11:42)
[2018-05-29] MEDS ORDERED: NALOXONE HCL 0.4 MG/ML INJ IVP PRN ×4 (11:42→13:07)
[2018-05-29] MEDS ORDERED: METOCLOPRAMIDE 10 MG/2 ML VIAL IVP PRN (11:42)
[2018-05-29] MEDS ORDERED: PROMETHAZINE HCL 25 MG/ML INJ IVP PRN (11:42)
[2018-05-29] MEDS ORDERED: HYDROmorphONE/DILAUDID 2 MG/ML INJ ONE (11:57)
[2018-05-29] MEDS ORDERED: ceFAZolin 1 GM VIAL ONE (12:01)
[2018-05-29] MEDS ORDERED: KETOROLAC 30 MG/1 ML SDV ONE (12:12)
[2018-05-29] MEDS ORDERED: NEOSTIGMINE METHYLSULFATE 5 MG/5 ML SYR ONE (12:18)
[2018-05-29] MEDS ORDERED: PROPOFOL 200 MG/20 ML VIAL ONE (12:45)
[2018-05-29] MEDS ORDERED: LACTULOSE 20 GM/30 ML UDCUP PO PRN (13:03)
[2018-05-29] MEDS ORDERED: POLYETHYLENE GLYCOL 3350 17 GM PKT PO PRN (13:03)
[2018-05-29] MEDS ORDERED: BISACODYL 10 MG SUPP PR PRN (13:03)
[2018-05-29] MEDS ORDERED: diphenhydrAMINE 25 MG CAP PO PRN (13:07)
[2018-05-29] MEDS ORDERED: HYDROmorphONE/DILAUDID 6 MG/30 ML PCA IV PRN (13:07)
[2018-05-29] MEDS ORDERED: oxyCODONE IR 15 MG TAB PO PRN (13:08)
--- NOTE | 2018-05-29 14:44 | PDMN ---
Medical Necessity Medical necessity: Pt meets inpt criteiria per MD order and Musculoskeletal surgery GRG, op: L periacetabular osteotomy, MC IP only list. 32 y/o w/ acetabular impingement and L labral tear admitted for L NIDIA and post-op care.
[2018-05-29] MEDS: oxyCODONE IR 5 MG TAB PO SCH ×3 (15:47→21:21)
[2018-05-29] MEDS: NAPROXEN SODIUM 220 MG TAB PO SCH ×2 (16:00→21:19)
--- NOTE | 2018-05-29 16:34 | SUROPNOTE ---
KATHERINE Operative Report - Surgery Surgery was performed at [facility] on~05/29/18~ Diagnosis:~Left 1. Hip Acetabular Dysplasia ~ Operation: Left~Brittany Acetabular Osteotomy (NIDIA) Surgeon: Solomon Valladares MD Pet Care Assistant:~~Trudi Vu MD Anesthetic: General + spinal Procedure: General anesthetic. Antibiotics given. Cell saver in use. Fluoroscopy. Phase 1: Position lateral, diagonal skin incision between ischial tuberosity and greater trochanter as for posterior hip approach. Blunt split of glut max fibers. Identification of fat pad overlying sciatic nerve. Exposure of sciatic nerve under fat pad, gently retracting it away-medially to ischial tuberosity. Exposure of subcotoloid fossa proximal to short rotators. UsingPrecision saw, osteotomy of subcotoloid [id number] mm short of (lateral to) thesciatic notch. Closure of lateral cut. Patient is turned supine. Phase 2: Skin incision just distal to ASIS. Using diathermy the iliac spine was exposed and inguinal ligament + Sartorious were retracted medially, taking the LFCN with them, protecting it. Inner ilium was dissected from iliacus muscle bluntly , with a cob and swab. Dissection continued towards lateral superior ramus pubis. Using fluoroscopy an osteotomy of lateral superior ramus, just medial to tear drop, was performed with~curved fish mouth osteotome. Phase 3: Osteotomy lines of the ilium were marked with diathermy as pre planned according to XR/CT and expected correction of acatabulum. 2 Shanz screws were drilled into central acetabular fragment, corresponding with planned correction angles, in order to mobilize central acetabular fragment after osteotomy is complete. ~Iliac osteotomy was performed with reciprocating saw and the main acetabular fragment was moved to realign weight bearing position. After confirmation of correction using fluoroscopy in AP and false profile planes, the fragment was fixed with 2 -~5.5mm~~full threaded~screws~and 1 -~4mm~~full threaded~screw. Inguinal ligament and Sartorious were attached back to ASIS through drill holes. Incision was closed according to soft tissue layers. Skin was closed with~subdermal Monocryl. Final fluoro shots were obtained to confirm position/correction. After surgery~Heidi~moved both lower limbs and had no NV motor compromise. Specimen - none Bleeding -~450ml Complication - none Evaluation under anesthesia: IR at 90 degrees hip flexion prior to NIDIA was~30~degrees and after NIDIA was 15~ degrees. Bleeding:~450~cc into cell-saver, 270~of blood products were returned to patient. Post op instructions: 1.~toe touch~weight bearing till post op XR then FWB~crutches 2. Epidural analgesia for 24-48 hours 3. Continuous SCD 4. Aspirin 81 mg X1 day once Epidural is discontinued 5. Avoid hip flexion past 90 and hip External rotation. 6. PT according to my recommendations at follow up visit Kind regards, Dr. Solomon Valladares
[2018-05-29] MEDS: NS 1,000 ML IV SCH (18:11)
[2018-05-29] MEDS: SENNOSIDES/DOCUSATE SODIUM TAB PO SCH (21:20)
[2018-05-29] MEDS: ONDANSETRON DISINTEGRATING 4 MG TAB PO PRN (21:22)
[2018-05-30] MEDS: DIAZEPAM 2 MG TAB PO PRN ×2 (00:11→22:08)
[2018-05-30] MEDS: oxyCODONE IR 5 MG TAB PO SCH ×6 (01:41→22:09)
[2018-05-30] MEDS: NS 1,000 ML IV SCH ×2 (04:10→14:16)
[2018-05-30] MEDS: SENNOSIDES/DOCUSATE SODIUM TAB PO SCH ×2 (09:46→22:09)
[2018-05-30] MEDS: NAPROXEN SODIUM 220 MG TAB PO SCH ×3 (09:48→22:08)
[2018-05-30] MEDS: PANTOPRAZOLE SODIUM 40 MG TAB PO SCH (09:48)
--- NOTE | 2018-05-30 15:00 | ASMTCMCOM ---
CM Note CM Note Notes: Pt had planned surgery for hip dysplagia, resides with SO and child. OT rec home/HHC, PT rec 24/hr supervision/outpatient. CM to follow pt progress. Date Signed: 05/30/2018 03:00 PM Electronically Signed By:VINH Haynes
--- NOTE | 2018-05-30 16:11 | PDHOSCONS ---
History and Physical - Chief Complaint L Hip pain - History of Present Illness Heidi Montenegro is a 32 yo F with a PMHx of L hip dysplasia, solitary kidney admitted for L manny acetabular osteotomy. She reports pain controlled this morning. She reports no other complaints at this time. History Information - Allergies/Home Medication List Allergies/Adverse Reactions: levofloxacin [From Levaquin] Allergy (Severe, Verified 01/14/17 11:46) Hives codeine Allergy (Intermediate, Verified 01/14/17 11:46) Hives apricots Allergy (Severe, Uncoded 01/14/17 11:46) Swelling/neck,face,throat pineapple Allergy (Severe, Uncoded 01/14/17 11:46) Swelling/neck,face,throat Home Medications: Alesse ( Control) 1 each PO DAILY 01/20/17 [Last Taken 02/28/17] Naproxen Sodium [Naproxen Sodium ER] 500 mg PO BID 05/24/18 [Last Taken Unknown] Diazepam [Valium 2 MG (*)] 2 mg PO Q4-6PRN PRN 05/29/18 [Last Taken Unknown] Ondansetron Odt [Zofran Odt 4 mg (*)] 4 mg PO Q6HRS PRN 05/29/18 [Last Taken Unknown] oxyCODONE/APAP 5/325 [Percocet 5/325 (*)] 1 - 2 tab PO Q4-6PRN PRN 05/29/18 [ Last Taken Unknown] I have personally reviewed and updated: family history, medical history, social history, surgical history - Past Medical History Additional medical history: L hip dysplasia, solitary kidney - Surgical History Additional surgical history: L manny acetabular osteomy on 05/29 - Family History Positive for: non-pertinent - Social History Smoking Status: Never smoked Alcohol Use: None Review of Systems Review of Systems: ROS: 10pt was reviewed & negative except for what was stated in HPI & below Physical Exam Physical Exam: Temp Pulse Resp BP Pulse Ox 36.9 C 74 16 100/54 L 98 05/30/18 16:00 05/30/18 16:00 05/30/18 16:00 05/30/18 16:00 05/30/18 16:00 O2 (L/minute) 2 Constitutional: no apparent distress Eyes: PERRL, anicteric sclera Ears, Nose, Mouth, Throat: moist mucous membranes Cardiovascular: regular rate and rhythym Respiratory: no respiratory distress Gastrointestinal: soft, non-tender abdomen Skin: warm Musculoskeletal: pain with ROM Neurologic: AAOx3 Psychiatric: interacting appropriately Lab Data & Imaging Review 05/30/18 04:39 05/30/18 04:39 WBC 10.77 10^3/uL (3.80-9.50) H 05/30/18 04:39 RBC 3.95 10^6/uL (4.18-5.33) L 05/30/18 04:39 Hgb 11.9 g/dL (12.6-16.3) L 05/30/18 04:39 Hct 35.1 % (38.0-47.0) L 05/30/18 04:39 MCV 88.9 fL (81.5-99.8) 05/30/18 04:39 MCH 30.1 pg (27.9-34.1) 05/30/18 04:39 MCHC 33.9 g/dL (32.4-36.7) 05/30/18 04:39 RDW 12.0 % (11.5-15.2) 05/30/18 04:39 Plt Count 177 10^3/uL (150-400) 05/30/18 04:39 Sodium 135 mEq/L (135-145) 05/30/18 04:39 Potassium 4.2 mEq/L (3.5-5.2) 05/30/18 04:39 Chloride 106 mEq/L (97-110) 05/30/18 04:39 Carbon Dioxide 23 mEq/l (22-31) 05/30/18 04:39 Anion Gap 6 mEq/L (6-14) 05/30/18 04:39 BUN 13 mg/dL (7-23) 05/30/18 04:39 Creatinine 0.9 mg/dL (0.6-1.0) 05/30/18 04:39 Estimated GFR > 60 05/30/18 04:39 Glucose 100 mg/dL (70-100) 05/30/18 04:39 Calcium 8.4 mg/dL (8.5-10.4) L 05/30/18 04:39 Assessment & Plan Assessment: 1. L Hip Dysplasia - S/p L manny acetabular osteotomy on 3/18 - Pain management per primary team - PT/OT 2. Solitary Kidney - Pt reports congenital abnormality, has had no issues in the past - Currently on Naproxen scheduled - GFR >60, Cr 0.7 on admission - Continue NSAIDs for now per primary team - Continue to monitor GFR, Cr while on scheduled NSAIDs 3. Anemia - Hgb dropped 14.8 on admission, 11.9 this AM - S/p OR yesterday, no s/s of bleeding noted - Continue to monitor H/H Thank you for the consult. If you have any additional questions or concerns please contact hospitalist service. We will continue to follow peripherally throughout patient's hospitalization.
[2018-05-30] MEDS: ONDANSETRON DISINTEGRATING 4 MG TAB PO PRN (19:07)
[2018-05-31] MEDS: oxyCODONE IR 5 MG TAB PO SCH ×6 (02:25→23:33)
[2018-05-31] MEDS: SENNOSIDES/DOCUSATE SODIUM TAB PO SCH ×2 (08:53→22:06)
[2018-05-31] MEDS: NAPROXEN SODIUM 220 MG TAB PO SCH ×3 (08:54→23:33)
[2018-05-31] MEDS: PANTOPRAZOLE SODIUM 40 MG TAB PO SCH (08:54)
--- NOTE | 2018-05-31 09:06 | SOAPPROG ---
SOAP Progress Note Assessment/Plan: Assessment: 1 day post op Left Periacetabular Osteotomy Plan: transition to oral analgesics Oxycodone D/C Anglin when ambulatory PT/OT Pelvis X-Ray POD #3 05/31/18 09:01 Subjective: LATE ENTRY Pt seen at 1600 yesterday Heidi describes being "behind" with her pain management saying that she has been reluctant to take pain medications. Derrek is still in, she has been up with PT. She denies cp, sob or nausea. Objective: Vital Signs Temp Pulse Resp BP Pulse Ox 37.2 C 89 17 114/85 H 96 05/31/18 07:29 05/31/18 07:29 05/31/18 07:29 05/31/18 07:29 05/31/18 07:29 Laboratory Results 05/30/18 04:39 05/30/18 04:39 05/30/18 05/31/18 06/01/18 05:59 05:59 05:59 Intake Total 3350 1450 800 Output Total 2950 2200 625 Balance 400 -750 175 LEFT HIP: dressings clean dry intact edema thigh numbness NVI distally Full ROM of foot and ankle ICD10 Worksheet Patient Problems: Problems Problem Status Onset Post-operative pain Acute
[2018-05-31] MEDS: ACETAMINOPHEN 325 MG TAB PO PRN (10:22)
[2018-05-31] MEDS: ONDANSETRON DISINTEGRATING 4 MG TAB PO PRN ×2 (12:07→17:58)
[2018-05-31] MEDS: ASPIRIN EC 81 MG TAB PO SCH (15:07)
[2018-05-31] MEDS: MAGNESIUM HYDROXIDE 30 ML UDCUP PO PRN (15:42)
--- NOTE | 2018-05-31 17:13 | POSTANESTH ---
Post Anesthetic Evaluation Cardiovascular Status: Normal, Stable Respiratory Status: Normal, Stable Level of Consciousness/Mental Status: Can Participate in Eval Pain Control: Adequate, Prn Tx Ordered Nausea/Vomiting Control: Adequate, Prn Tx Ordered Complications Possibly Related to Anesthesia: None Noted Notes: No BLAND. Nausea today but less than last POA
--- NOTE | 2018-05-31 21:13 | SOAPPROG ---
SOAP Progress Note Assessment/Plan: Assessment: 32 yo F POD#2 s/p L NIDIA, doing well post-operatively with some nausea. Plan: Continue PO pain control ASA/SCDs for DVT ppx PT/OT Pelvis X-Ray POD #3 -- needs to be reviewed by Dr. Valladares prior to d/c Continue zofran for nausea, consider reglan or phenergan if persistent Bowel regimen PRN 05/31/18 21:10 Subjective: Pt reports some nausea, as well as feeling distended. Has not yet had bowel movement post-operatively. Pain control adequate off PLANT OPERATOR. Anglin out and voiding. Ambulated with PT today. Objective: Vital Signs Temp Pulse Resp BP Pulse Ox 36.7 C 97 16 121/71 H 95 05/31/18 20:00 05/31/18 20:00 05/31/18 20:00 05/31/18 20:00 05/31/18 20:00 Laboratory Results 05/30/18 04:39 05/30/18 04:39 05/30/18 05/31/18 06/01/18 05:59 05:59 05:59 Intake Total 3350 1450 1800 Output Total 2950 2200 3725 Balance 400 -750 -1925 Gen: NAD, tired L hip dressings c/d/i Lateral thigh numbness 0/10 LFCN Distally 5/5 TA, GSC, EHL SILT throughout foot ICD10 Worksheet Patient Problems: Problems Problem Status Onset Post-operative pain Acute
[2018-05-31] MEDS: DIAZEPAM 2 MG TAB PO PRN (22:05)
[2018-06-01] MEDS: ACETAMINOPHEN 325 MG TAB PO PRN (03:02)
[2018-06-01] MEDS: oxyCODONE IR 5 MG TAB PO SCH ×7 (03:06→21:56)
[2018-06-01] MEDS: DIAZEPAM 2 MG TAB PO PRN (04:36)
[2018-06-01] MEDS: SENNOSIDES/DOCUSATE SODIUM TAB PO SCH ×2 (08:18→21:55)
[2018-06-01] MEDS: NAPROXEN SODIUM 220 MG TAB PO SCH ×3 (08:18→21:55)
[2018-06-01] MEDS: PROMETHAZINE HCL 25 MG/ML INJ IVP PRN ×2 (08:19→21:27)
[2018-06-01] MEDS: ASPIRIN EC 81 MG TAB PO SCH (08:19)
[2018-06-01] MEDS: PANTOPRAZOLE SODIUM 40 MG TAB PO SCH (08:19)
[2018-06-01] MEDS ORDERED: oxyCODONE IR 5 MG TAB PO PRN (10:30)
--- NOTE | 2018-06-01 16:29 | ASMTCMCOM ---
CM Note CM Note Notes: Today PT rec [facility] since pt [facility] not have [facility] appointment [facility] until [facility]18 because the PTs were booked. This CM spoke with pt who declines [facility] because she was provided an book of home exercises to do by MD which is very specific and is details week by week what she should do. Pt reports her follow up with MD is 06/15/18 and he does not want her doing too much before that appointment. Pt wants to follow [facility] which is currently outpatient PT. Pt mom will be able to provide 24/7 care for a few weeks after d/c. CM available for d/c needs identified by pt or MD. D/c plan: Independent Date Signed: 06/01/2018 04:29 PM Electronically Signed By:VINH Haynes
[2018-06-02] MEDS: oxyCODONE IR 5 MG TAB PO SCH ×3 (02:11→08:40)
--- NOTE | 2018-06-02 07:59 | SOAPPROG ---
SOAP Progress Note Assessment/Plan: Assessment: Plan: 06/02/18 07:58 Saw patient POD 3/4 Doing very well, pain controlled, XR looks good and cleared to go home. 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 Incision looks good. Dr Valladares Objective: Vital Signs Temp Pulse Resp BP Pulse Ox 36.7 C 74 16 120/66 97 06/02/18 07:51 06/02/18 07:51 06/02/18 07:51 06/02/18 07:51 06/02/18 07:51 Laboratory Results 05/30/18 04:39 05/30/18 04:39 06/01/18 06/02/18 06/03/18 05:59 05:59 05:59 Intake Total 2100 1500 Output Total 3725 Balance -1625 1500 ICD10 Worksheet Patient Problems: Problems Problem Status Onset Post-operative pain Acute
[2018-06-02] MEDS: MAGNESIUM HYDROXIDE 30 ML UDCUP PO PRN (08:39)
[2018-06-02] MEDS: NAPROXEN SODIUM 220 MG TAB PO SCH (08:39)
[2018-06-02] MEDS: SENNOSIDES/DOCUSATE SODIUM TAB PO SCH (08:39)
[2018-06-02] MEDS: ASPIRIN EC 81 MG TAB PO SCH (08:40)
[2018-06-02] MEDS: PANTOPRAZOLE SODIUM 40 MG TAB PO SCH (08:40)
--- NOTE | 2018-06-02 11:59 | ASDISCHSUM ---
Discharge Information Plan Status:Home with No Needs Medically Cleared to Leave: Discharge Date: CM D/C Disposition:Home, Routine, Self-Care ADT D/C Disposition:Home, Routine, Self-Care Projected Discharge Date: Transportation at D/C: Discharge Delay Reason: Follow-Up Date: Discharge Slot: Final Diagnosis: Placement Information Patient Contact Information Contact Name:BENNIE Relationship: Address: Work Phone: City: [facility] Phone: State/[place] Code: Email: Financial Information Financial Class:[facility] Primary Plan Desc:[facility] Primary Plan Number:[id number] Secondary Plan Desc: Secondary Plan Number: Assessment Information LACE LACE Length of stay for Answers: 4-6 days current admission Acuity / Level of Answers: Yes Care: Did the patient have an inpatient admission? Comorbidities - select Answers: Opioid dependence all that apply / Chronic pain # of Emergency department Answers: 0 visits in the last 6 months Score: 11 Date Signed: 06/02/2018 11:55 AM Electronically Signed By:Rupa Wade RN [facility] CM Progress Note CM Note CM Note Notes: Pt had planned surgery for hip dysplagia, resides with SO and child. OT rec home/[facility], PT rec 24/hr supervision/outpatient. CM to follow pt progress. Date Signed: 05/30/2018 03:00 PM Electronically Signed By:VINH Haynes [facility] CM Progress Note CM Note CM Note Notes: Today PT rec [facility] since pt does not have an outpatient PT appointment at [facility] until 07/03/18 because the PTs were booked. This CM spoke with pt who declines [facility] because she was provided an book of home exercises to do by MD which is very specific and is details week by week what she should do. Pt reports her follow up with MD is 06/15/18 and he does not want her doing too much before that appointment. Pt wants to follow [facility] which is currently outpatient PT. Pt mom will be able to provide / care for a few weeks after d/c. CM available for d/c needs identified by pt or MD. D/c plan: Independent Date Signed: 06/01/2018 04:29 PM Electronically Signed By:VINH Haynes Intervention Information
[2018-06-02 13:35] VITALS: BP 121/74
== END 2018-06-02 13:11 | disposition home or self-care (01) | DRG 516 ==
LOC: F3N 05:47
PROVIDERS: ADMIT Orthopaedic Surgery Sports Medicine; ATTEND Orthopaedic Surgery Sports Medicine
PROC: 0QS504Z Reposition Left Acetabulum with Internal Fixation Device, Open Approach (ICD-10-PCS; principal; 2018-05-29 07:15)
DX: Q65.89 Other specified congenital deformities of hip (principal); Q60.0 Renal agenesis, unilateral; M25.851 Other specified joint disorders, right hip; M25.852 Other specified joint disorders, left hip; D64.9 Anemia, unspecified
CPT/HCPCS: 97116-GP; 97161-GP; 97166-GO; 97530-GO; 97530-GP; 97535-GO; C1713; J0690; J0735; J1100; J1170; J1885; J2250; J2274; J2370; J2405; J2550; J2704; J2710; J3010